=== PATIENT | female | born 1930 | race Caucasian/White ===

== ENCOUNTER 2017-01-06 07:43 | Inpatient (IN) | payer OTHER ==
--- NOTE | ~2017-01-06 | CR107 ---
[facility] A Service of [facility] RADIOLOGY TEXT RESULTS PATIENT: MIKE MAGANA LOCATION: [place] [address] : 30 UNIT #: [id number] AGE: [address]: Anthony Rodgers MD SEX: F ORDER DR: [id number] [facility] [address] [place], [place] [address] [id number] I MR#: [id number] Acc #: [id number] NAME: MIKE MAGANA. : 1930 SEX: F STUDY DATE/TIME: 01/06/2017 9:02 UNIT: CEDOF ROOM: 23493 STUDY DESCRIPTION: CR Femur 2 Views Rt Attending Physician: Anthony Rodgers M.D. Ordering Physician: Helio Hooker M.D. Primary Care Physician: Clara Olivares M.D. MEDICAL IMAGING REPORT This report is preliminary unless electronic signature is present EXAM Right femur, 01/06. INDICATIONS Leg pain after fall out of bed today. FINDINGS Four views were obtained including the proximal lower leg. Patient is status post previous fixation of the right proximal femur with an intramedullary renata and a compression screw. Again seen are the fractures of the proximal tibia and fibula. No definite fracture is seen within the femur. However, the distal femoral metaphysis is not well evaluated on the views provided. IMPRESSION Prior fixation of the proximal femur with a compression screw and intramedullary rneata. No acute femur fracture is seen on the views provided but the distal femoral metaphysis is fairly poorly evaluated on these images. If there is concern for distal femur fracture, additional imaging should be obtained. Redemonstrated are the known fracture of the proximal tibia and fibula. Dictated by... Mariano Gomez Jr., M.D. THIS IS AN ELECTRONICALLY VERIFIED REPORT Mariano Gomez Jr., M.D. at 01/06/2017 5:27 PM Ron TD: 01/06/2017 15:36 JOB #: [id number] [facility] A Service of [facility] RADIOLOGY TEXT RESULTS PATIENT: MIKE MAGANA LOCATION: [place] [address] : 30 UNIT #: [id number] AGE: [address]: Anthony Rodgers MD SEX: F ORDER DR: MEDICAL IMAGING REPORT Page 1 of 1 COPY
--- NOTE | ~2017-01-06 | CO ---
Unit #: [id number] #: [id number] Patient: MIKE MAGANA [id number] [address] [address] [id number] I MR#: [id number] NAME: MIKE MAGANA. ROOM: 447 Age: 86 Sex: F Admission Date: 01/06/2017 : 1930 Attending Physician: Anthony Rodgers M.D. Primary Care Physician: Clara Olivares M.D. Consultation Date: 01/07/2017 CONSULTATION REPORT REASON FOR CONSULTATION Elevated creatinine level. HISTORY OF PRESENT ILLNESS Patient is an 86-year-old white female with known history of hypertension, COPD, history of hypothyroidism, history of breast cancer status post right mastectomy, came in after a fall with noted right tibia and fibula fracture. Creatinine level noted to be 2.2. The creatinine was 0.5 in 2010. Baseline creatinine not currently available. Patient sees Dr. Olivares in the office. Patient does not report any chest pain or passing out. No fevers. No chills. No vomiting. No diarrhea. No use of NSAIDs. The home medications include Losartan and hydrochlorothiazide. PAST MEDICAL HISTORY 1. Hypertension. 2. COPD. 3. Graves disease. 4. Hypothyroidism. 5. Breast cancer. 6. History of compression fracture of T12. PAST SURGICAL HISTORY 1. Right mastectomy. 2. Cholecystectomy. 3. Appendectomy. SOCIAL HISTORY Does not drink, does not smoke. FAMILY HISTORY Unremarkable. ALLERGIES Sulfa. HOME MEDICATIONS 1. Losartan and hydrochlorothiazide. 2. Synthroid. 3. Remeron. REVIEW OF SYSTEMS CARDIOVASCULAR: No chest pain. RESPIRATORY: No cough or expectoration. GASTROINTESTINAL: No diarrhea. No vomiting. Unit #: [id number] #: [id number] Patient: MIKE MAGANA GENITOURINARY: No hematuria. No dysuria. PHYSICAL EXAMINATION GENERAL: Patient is awake, alert. VITAL SIGNS: Temperature is 98.9, heart rate is 70 per minute, blood pressure 142/34, saturation 98%. HEENT: Head is atraumatic. Extraocular movements are intact. Sclerae are anicteric. Nose: No discharge. Ears: No discharge. NECK: Supple. There is elevation of the JVD. CHEST: Clear. Air entry is equal. CARDIOVASCULAR: S1, S2 audible. There is no S3, no S4. ABDOMEN: Soft. There is no organomegaly. No guarding. No rigidity. No rebound tenderness. There is right splint for the fracture. CENTRAL NERVOUS SYSTEM: Motor system intact. Cerebellar system intact. DIAGNOSTIC STUDIES LABORATORY: WBC 8.8, H and H is 30.6 with a hemoglobin of 10, platelets is 94,000. Sodium 138, potassium 3.6, chloride 110, CO2 of 22, BUN 49, creatinine 2.1, glucose 148, calcium 8.1. Urinalysis is bland with 2+ blood and 10-25 WBC and RBC. The renal ultrasound reveals right kidney 8.8 cm with left kidney 9 cm with cortical thinning on the right side. IMPRESSION 1. Acute kidney injury, possible hemodynamic related increase in creatinine complicated by Losartan, possible progression of her underlying chronic kidney disease secondary to hypertensive nephrosclerosis. Will request the BMP and creatinine level from the previous one here from PCP office. The renal ultrasound does not reveal any obstruction. We will recheck the urinalysis and consider workup if there is significant proteinuria and active urinary sediment. Also, consider paraproteinemia. Currently, the renal function is stable. I do not expect the patient to need dialysis during the admission. Volume is mildly contracted clinically. Will gently hydrate the patient. Request to refrain from NSAIDs and (1) . 2. 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 3. Thrombocytopenia: Etiology unclear. 4. Status post right tibia/fibula fracture. 5. Hypertension. 6. Chronic obstructive pulmonary disease. Dictated by... Denys Ledbetter M.D. RA/mayda TD: 01/08/2017 16:08 JOB #: [id number] Unit #: [id number] #: [id number] Patient: MIKE MAGANA CONSULTATION REPORT Page 1 of 1 X Denys Ledbetter MD CONSULTATION REPORT
--- NOTE | ~2017-01-06 | DS ---
Unit #: [id number] #: [id number] Patient: MIKE MAGANA [id number] [address] [address] [id number] I MR#: [id number] NAME: MIKE MAGANA. ROOM: 462 Age: 86 Sex: F Admission Date: 01/06/2017 : 1930 Discharge Date: 01/12/2017 Attending Physician: Anthony Rodgers M.D. Primary Care Physician: Clara Olivares M.D. DISCHARGE SUMMARY DISCHARGE DIAGNOSES 1. Right tibia/fibula fracture, status post orthopedic evaluation, status post OR. 2. Acute kidney injury, is getting better. Status post evaluation per Nephrology stable to be discharged. 3. Hypertension, stable. 4. Chronic obstructive pulmonary disease at baseline. 5. Dementia, continue home medication. DISPOSITION Going to [facility]. FOLLOWUP 1. Follow up with Dr. Jose Olivares at the [facility]. 2. Outpatient followup with Dr. Denys Ledbetter, nephrology, in a week. 3. Outpatient followup with the orthopedic surgery. CONSULTANTS DONE THIS HOSPITAL STAY 1. Dr. Mckeon, orthopedic surgery. 2. Dr. Denys Ledbetter, nephrology. 3. Dr. Jackson, GI. LABS AND DIAGNOSTICS AND PROCEDURES [facility] 1. Colonoscopy with polypectomy per Dr. Jackson. 2. Closed reduction with a long leg cast per orthopedic surgery. 3. Urine culture negative. HISTORY OF PRESENT HOSPITAL STAY Please refer to H and P done by me for initial presentation on this female. ACTIVE PROBLEMS AND DIAGNOSES Right tib/fib fracture: Initially was entertaining thought of ORIF however after orthopedic surgery evaluation decided to do a conservative management with the long leg cast. Continue PT and OT. Outpatient followup with the orthopedic surgery. Continue symptomatic management. Acute kidney injury, discharge day BUN and creatinine 32 and 1.1: Discharge on p.o. Bumex. Per nephrology outpatient followup with nephrology. Hypertension, stable. Unit #: [id number] #: [id number] Patient: MIKE MAGANA COPD with baseline Dementia, on home meds. DISCHARGE MEDICATIONS 1. Heparin 5000 units subcu b.i.d. for DVT prophylaxis. 2. Remeron 15 mg daily. 3. Claritin 10 mg daily. 4. Amlodipine 10 mg daily. 5. Namzaric 28/10 one capsule q.h.s. 6. Bumex 2 mg p.o. b.i.d. for four more days. 7. Pepcid 20 mg daily. 8. Percocet 5/325 one tablet q.6 h. p.r.n. 9. Levothyroxine 100 mcg daily. DISPOSITION As above. DISCHARGE MEDICATIONS As above. Dictated by... Anthony Rodgers M.D. OC/jeffrey TD: 01/12/2017 19:02 JOB #: [id number] DISCHARGE SUMMARY Page 1 of 1 X Anthony Rodgers MD X DISCHARGE SUMMARY
--- NOTE | ~2017-01-06 | CR253 ---
[facility] A Service of [facility] & [facility] RADIOLOGY TEXT RESULTS PATIENT: MIKE MAGANA LOCATION: [place] [address] : 30 UNIT #: [id number] AGE: [address]: Anthony Rodgers MD SEX: F ORDER DR: [id number] [place] [address] [facility] [place], [place] [address] [id number] I MR#: [id number] Acc #: [id number] NAME: MIKE MAGANA. : 1930 SEX: F STUDY DATE/TIME: 01/06/2017 9:00 UNIT: CEDOF ROOM: 399[address] STUDY DESCRIPTION: CR Tibia and Fibula 2 Views Rt Attending Physician: Anthony Rodgers M.D. Ordering Physician: Helio Hooker M.D. Primary Care Physician: Clara Olivares M.D. MEDICAL IMAGING REPORT This report is preliminary unless electronic signature is present EXAM Right tib-fib; 01/06/2017. INDICATIONS Pain and swelling in the right tibia and fibula after a fall out of bed today. FINDINGS AP and lateral views of the right lower leg were obtained. Metallic splint is present. There are predominately transversely oriented fractures across the proximal fibula, as well as the proximal tibial diaphysis. These are slightly displaced in the lateral direction. No other definite fractures are seen. The patient is osteopenic. IMPRESSION Prominently transversely oriented fractures across the proximal fibula and the proximal tibia at the diaphysis level. These are mildly displaced in the lateral direction. Dictated by... Mariano Gomez Jr., M.D. THIS IS AN ELECTRONICALLY VERIFIED REPORT Mariano Gomez Jr., M.D. at 01/06/2017 5:27 PM SAMANTHA/donavan TD: 01/06/2017 15:34 JOB #: [id number] MEDICAL IMAGING REPORT Page 1 of 1 COPY
--- NOTE | ~2017-01-06 | HP ---
Unit #: [id number] #: [id number] Patient: MIKE MAGANA [id number] [address] [address] [id number] I MR#: [id number] NAME: MIKE MAGANA. ROOM: [facility] Age: 86 Sex: F Admission Date: 01/06/2017 : 1930 Attending Physician: Anthony Rodgers M.D. Primary Care Physician: Clara Olivares M.D. HISTORY AND PHYSICAL REASON FOR ADMISSION 1. Status post fall with right tib-fib fracture. 2. History of dementia. 3. History of hypertension. 4. History of chronic obstructive pulmonary disease. 5. History of Grave disease. Status post radioactive treatment, now with hypothyroidism. 6. History of breast cancer, status post right-sided mastectomy. 7. History of T12 compression fracture. 8. History of osteoporosis. HISTORY OF PRESENT ILLNESS Ms. 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 The patient's daughter is working at Dr. Olivares's office. She is a nurse practitioner. Apparently the patient was at home with her son when she sustained a fall. Upon evaluation In the emergency room she was found with the right tib-fib fracture. The patient did not have any head injury. There was no report of syncope, chest pain, dizziness, headache, fever, chills, nausea, vomiting, diarrhea, or abdominal pain. The patient herself has dementia with limited ability to carry on a conversation. However, at the bedside the patient's son and the daughter are both present. All of the history is basically obtained through them. PAST MEDICAL HISTORY 1. History of hypertension. 2. Chronic obstructive pulmonary disease. 3. Grave disease. 4. Hypothyroidism. 5. Breast cancer. 6. T12 compression fracture and osteoporosis. PAST SURGICAL HISTORY 1. Mastectomy. 2. Cholecystectomy. 3. Appendectomy. SOCIAL HISTORY No current history of tobacco, alcohol or illicit drugs. FAMILY HISTORY Unremarkable. ALLERGIES Unit #: [id number] #: [id number] Patient: MIKE MAGANA Sulfa. HOME MEDICATIONS 1. Loratadine. 2. Losartan/HCTZ. 3. Synthroid. 4. Remeron. 5. Namzaric 28/10. REVIEW OF SYSTEMS As above in history of present illness. PHYSICAL EXAMINATION GENERAL: The patient is an 86-year-old female in no acute distress. HEENT: Head is atraumatic. Pupils equal, round and reactive to light. Oropharynx clear. NECK: Supple. No masses. No jugular venous distension. No bruits. CHEST: Diminished at the bases. Otherwise clear. HEART: S1 and S2. No murmurs. ABDOMEN: Soft, nontender and nondistended. Bowel sounds present. EXTREMITIES: Lower extremities without any cyanosis, clubbing or edema. She has an Alejandro wrap with a cast on the right. NEUROLOGIC: She is without any focal deficits. She is alert and awake with limited conversational ability, but again she moves all four extremities. No focal deficits. No facial asymmetry. DIAGNOSTIC STUDIES IMAGING: X-ray shows prominently transversely oriented fractures across the proximal fibula and the proximal tibia at the diaphysis level. These are mildly displaced in the lateral direction. Femur x-ray shows prior fixation of the proximal femur with a compression screw and intramedullary renata. LABORATORY: Chemistry is significant for BUN 55, creatinine 2.2. Blood glucose 134. Hematology, white blood cell count 8.9, hemoglobin 12.1, hematocrit 37, platelets 121. ASSESSMENT 1. Status post fall with right tib-fib fracture. Continue supportive care, symptomatic management with some Dilaudid and IV fluids. Start on heparin for DVT prophylaxis. Status post orthopedic evaluation, to take patient to the operating room. 2. Acute renal failure on questionable chronic kidney disease. Will hold ARBs and HCTZ. Gentle hydration. Follow up on the chemistry. Will have nephrology to follow. 3. History of dementia. Continue home medications. 4. Hypertension. Stable with blood pressure 109/59, heart rate 69. 5. History of chronic obstructive pulmonary disease. Stable at baseline. 6. History of osteoporosis. 7. History of Grave disease. 8. History of breast cancer, status post mastectomy. 9. GI and DVT prophylaxis. Will put her on Pepcid. Continue heparin. Discontinue Protonix. Unit #: [id number] #: [id number] Patient: MIKE MAGANA Dictated by Anthony Rodgers M.D. OC/gz TD: 01/07/2017 07:01 JOB #: [id number] HISTORY AND PHYSICAL Page 1 of 1 X Anthony Rodgers MD HISTORY AND PHYSICAL
--- NOTE | ~2017-01-06 | US77 ---
[facility] A Service of [facility] & [facility] RADIOLOGY TEXT RESULTS PATIENT: MIKE MAGANA LOCATION: [place] 447-01 : 30 UNIT #: [id number] AGE: [address]: Anthony Rodgers MD SEX: F ORDER DR: [id number] [facility] [address] [place], [place] [address] [id number] I MR#: [id number] Acc #: [id number] NAME: MIKE MAGANA. : 1930 SEX: F STUDY DATE/TIME: 01/06/2017 21:36 UNIT: C4B ROOM: [facility] STUDY DESCRIPTION: US Kidney Bilateral Complete Attending Physician: Anthony Rodgers M.D. Ordering Physician: Chetan Alejandro Primary Care Physician: Clara Olivares M.D. MEDICAL IMAGING REPORT This report is preliminary unless electronic signature is present EXAM Complete bilateral renal ultrasound. COMPARISON None. INDICATIONS 86-year-old female with acute renal insufficiency. FINDINGS Right kidney measures 8.8 cm in length with mild diffuse cortical thinning. There is a hypoechoic structure in the superior pole of the right kidney favoring a cyst. It measures up to 3.1 cm x 2.5 cm x 1.9 cm and does not have internal color flow. There is no right hydronephrosis. No shadowing right renal calculi. Left kidney measures 9 cm in length. Detail of the left kidney is limited by poor acoustic window. Left renal cortical thickness appears normal. Bladder is not well seen on this exam. IMPRESSION 1. Asymmetric diffuse cortical atrophy of the right kidney with normal left-sided cortical thickness. 2. No hydronephrosis. 3. Hypoechoic structure favoring a cyst in the superior pole of the right kidney measuring up to approximately 3.1 cm. Consider imaging followup in 1 year to document stability. 4. Urinary bladder is not seen on this exam. Dictated by... Jelani Snell M.D. THIS IS AN ELECTRONICALLY VERIFIED REPORT Jelani Snell M.D. at 01/08/2017 10:23 PM [address] [facility] A Service of [facility] & [facility] RADIOLOGY TEXT RESULTS PATIENT: MIKE MAGANA LOCATION: [facility] [id number] : 30 UNIT #: [id number] AGE: [address]: Anthony Rodgers MD SEX: F ORDER DR: Rony TD: 01/07/2017 12:32 JOB #: [id number] MEDICAL IMAGING REPORT Page 1 of 1 COPY
--- NOTE | ~2017-01-06 | CR170 ---
[facility] A Service of [facility] & [facility] RADIOLOGY TEXT RESULTS PATIENT: MIKE MAGANA LOCATION: [place] [address] : 30 UNIT #: [id number] AGE: [address]: Anthony Rodgers MD SEX: F ORDER DR: [id number] [facility] [address] [place], [place] [address] [id number] I MR#: [id number] Acc #: [id number] NAME: MIKE MAGANA. : 1930 SEX: F STUDY DATE/TIME: 01/06/2017 20:30 UNIT: [facility] ROOM: [facility] STUDY DESCRIPTION: CR Knee 2 Views Rt Attending Physician: Anthony Rodgers M.D. Ordering Physician: Rodrigo Barros M.D. Primary Care Physician: Clara Olivares M.D. MEDICAL IMAGING REPORT This report is preliminary unless electronic signature is present EXAM Right knee 2 views INDICATIONS Fall and right knee pain. COMPARISON No comparisons. FINDINGS Osteopenia. There are fractures of both the proximal tibia and fibula. The tibial fracture is impacted and comminuted, and the fibular fracture is also impacted. The knee joint does appear to be intact. IMPRESSION Impacted fractures of the proximal tibial metaphysis and also the proximal fibula. Dictated by... Bernrad Chaudhry M.D. THIS IS AN ELECTRONICALLY VERIFIED REPORT Bernard Chaudhry M.D. at 01/11/2017 1:32 PM GAYATRI/luciano TD: 01/07/2017 11:43 JOB #: [id number] MEDICAL IMAGING REPORT Page 1 of 1 COPY
--- NOTE | ~2017-01-06 | CO ---
Unit #: [id number] #: [id number] Patient: MIKE PICHARDO [id number] [address] [address] [id number] I MR#: [id number] NAME: MIKE PICHARDO. ROOM: [facility] Age: 86 Sex: F Admission Date: 01/06/2017 : 1930 Attending Physician: Anthony Rodgers M.D. Primary Care Physician: Clara Olivares M.D. Consultation Date: 01/06/2017 CONSULTATION REPORT HISTORY OF PRESENT ILLNESS Ms. Pichardo is an 86-year-old lady who lives at home with her son. She does suffer from some memory loss. I have asked her today how she injured her right leg, and she does not remember. Reviewing the chart, it states that she did have a fall injuring her right leg. She was brought to the emergency room and was found to have a tib/fib fracture on the right side. We have been asked to provide orthopedic care for this closed injury. PAST SURGICAL HISTORY Reveals that surgically she has had a right hip gamma in the past by Dr. Barros, hysterectomy, gallbladder, right breast mastectomy, thyroid procedures. PAST MEDICAL HISTORY 1. Breast cancer. 2. Reflux. 3. Dementia. 4. Osteoporosis. 5. COPD. MEDICATIONS 1. Allerclear. 2. Losartan/hydrochlorothiazide. 3. Synthroid. 4. Remeron. 5. Namzaric. ALLERGIES Sulfa. SOCIAL HISTORY She lives with her son at home. She denies the use of tobacco or alcohol. REVIEW OF SYSTEMS Because of her dementia, I was unable to obtain a review of systems. PHYSICAL EXAMINATION GENERAL: The patient's exam today reveals she is awake but not alert. She is afebrile. Her pulse is 69. Her blood pressure is 109/59. The patient appears comfortably, resting in bed with her leg elevated. She has a splint in place. EXTREMITIES: Her orthopedic exam reveals her upper extremities move well. Lower extremities: Left leg moves well. Right leg is in a splint. Her neurovascular exam is intact in the foot. Unit #: [id number] #: [id number] Patient: MIKE PICHARDO PLAN I have reviewed her x-rays and it shows that she has a proximal tib/fib fracture that is angulated on the AP view but in good alignment on the lateral. I will discuss this with Dr. Barros, but we will either treat her with a closed reduction and long-leg cast or possibly ORIF. Dr. Barros will be doing her surgery tomorrow. Dictated by... Sarah Osei/mayda TD: 01/08/2017 09:52 JOB #: [id number] CONSULTATION REPORT Page 1 of 1 X Reese Mckeon MD X CONSULTATION REPORT
[~2017-01-06 07:43] MED LIST: ALLEGRA180 MG PO; ANUSOL-HC SUPP25 M1 PR; ASPIRIN81 M1 PO; HYDROCODONE-APA1 T56 PO; LEVOTHYROXINE100 MCG PO; LOSARTAN-HCTZ1 EAC2 PO; MEVACOR40 MG PO; MOBIC15 MG PO; SINGULAIR PO; TRAMADOL HCL50 M1 PO
[2017-01-06 09:27] LABS: BASOPHIL# 0.1 X10e3 (0-0.3); BASOPHIL% 0.8 % (0-2.5); EOSINOPHIL# 0.2 X10e3 (0-0.7); EOSINOPHIL% 2.7 % (0.0-7.0); HEMOGLOBIN 12.1 gm/dL (12.0-16.0); LYMPHOCYTE# 1.5 X10e3 (1.0-3.5); LYMPHOCYTE% 17.3 % (17.0-45.0); MEAN CELL VOLUME 98.5 FL (83-96); MEAN CORPUSCULAR HEMOGLOBIN 32.1 PG (28-34); MEAN CORPUSCULAR HGB CONC 32.6 g/dL (30-36); MEAN PLATELET VOLUME 9.3 FL (6.5-11.5); MONOCYTE# 0.6 X10e3 (0-1.0); MONOCYTE% 6.6 % (3.0-12.0); NEUTROPHIL# 6.4 X10e3 (1.5-7.1); NEUTROPHIL% 72.6 % (40-75); PLATELET COUNT 121 X10e3 (140-420); RED BLOOD COUNT 3.75 X10e (3.90-5.30); RED CELL DISTRIBUTION WIDTH 14.9 % (11.0-15.5); WHITE BLOOD COUNT 8.9 X10e3 (4.0-10.5)
[2017-01-06 09:28] LABS: DIFF IND NO
[2017-01-06 09:56] LABS: CALCIUM SERUM 9.3 mg/dL (8.4-10.2); CREATININE SERUM 2.2 mg/dL (0.6-1.4); GLOM FILT RATE Estimated 19.7 mL/min (>60); POTASSIUM 3.6 mmol/L (3.5-5.1)
[2017-01-06] MEDS ORDERED: PATIENT'S PHARMACY (11:48)
[2017-01-06] MEDS ORDERED: SYNTHROID PO (11:49)
[2017-01-06] MEDS ORDERED: ALLERCLEAR10 MG PO (11:49)
[2017-01-06] MEDS ORDERED: REMERON PO (11:49)
[2017-01-06] MEDS ORDERED: LOSARTAN-HCTZ1 EAC2 PO (11:49)
[2017-01-06] MEDS ORDERED: NAMZARIC 28 MG1 EACH PO (11:50)
[2017-01-06 21:16] LABS: URINE APPEARANCE CLEAR; URINE BILIRUBIN NEG (NEG); URINE BLOOD 2+ (NEG); URINE COLOR YELLOW; URINE GLUCOSE NEG (NEG); URINE KETONE NEG (NEG); URINE LEUKOCYTE ESTERASE 1+ (NEG); URINE NITRATE NEG (NEG); URINE PROTEIN NEG (NEG); URINE SPECIFIC GRAVITY 1.018 (1.003-1.035)
[2017-01-06 21:18] LABS: CULTURE INDICATED? YES; URINE BACTERIA AUWI 1+ (NEGATIVE); URINE SQUAMOUS EPITHELIAL CELL OCC /[HPF]
[2017-01-07 04:22] LABS: BASOPHIL% 0.4 % (0-2.5); EOSINOPHIL% 0.2 % (0.0-7.0); HEMATOCRIT 30.6 % (35.0-45.0); LYMPHOCYTE# 1.2 X10e3 (1.0-3.5); LYMPHOCYTE% 14.1 % (17.0-45.0); MEAN CELL VOLUME 98.6 FL (83-96); MEAN CORPUSCULAR HEMOGLOBIN 32.3 PG (28-34); MEAN CORPUSCULAR HGB CONC 32.7 g/dL (30-36); MEAN PLATELET VOLUME 9.8 FL (6.5-11.5); MONOCYTE# 0.9 X10e3 (0-1.0); MONOCYTE% 10.7 % (3.0-12.0); NEUTROPHIL# 6.5 X10e3 (1.5-7.1); NEUTROPHIL% 74.6 % (40-75); RED CELL DISTRIBUTION WIDTH 14.9 % (11.0-15.5); WHITE BLOOD COUNT 8.8 X10e3 (4.0-10.5)
[2017-01-07 04:24] LABS: BUN/CREATININE RATIO 23.33; CALCIUM SERUM 8.1 mg/dL (8.4-10.2); CREATININE SERUM 2.1 mg/dL (0.6-1.4); GLOM FILT RATE Estimated 20.8 mL/min (>60); POTASSIUM 3.6 mmol/L (3.5-5.1)
[2017-01-07 04:48] LABS: DIFF IND YES; PLATELET COUNT 94 X10e3 (140-420)
[2017-01-07 05:00] LABS: ANISOCYTOSIS SL; PLATELET ESTIMATE DECREASED (NORMAL)
[2017-01-07 18:45] LABS: URINE APPEARANCE CLOUDY; URINE BILIRUBIN NEG (NEG); URINE BLOOD 2+ (NEG); URINE COLOR YELLOW; URINE GLUCOSE NEG (NEG); URINE KETONE NEG (NEG); URINE LEUKOCYTE ESTERASE 3+ (NEG); URINE NITRATE NEG (NEG); URINE PROTEIN TRACE (NEG); URINE SPECIFIC GRAVITY 1.018 (1.003-1.035)
[2017-01-07 18:48] LABS: CULTURE INDICATED? YES; URINE BACTERIA AUWI 1+ (NEGATIVE); URINE SQUAMOUS EPITHELIAL CELL OCC /[HPF]; UWBCS1 AUWI 200-300 (0-5)
[2017-01-07 19:40] LABS: CREATININE,RANDOM URINE 112 mg/dL; SODIUM URINE RANDOM 48 mmol/L; TOTAL PROTEIN,RANDOM URINE 18 mg/dl (<10)
[2017-01-08 04:00] LABS: BASOPHIL% 0.3 % (0-2.5); EOSINOPHIL# 0.1 X10e3 (0-0.7); EOSINOPHIL% 0.6 % (0.0-7.0); HEMATOCRIT 30.6 % (35.0-45.0); LYMPHOCYTE# 1.4 X10e3 (1.0-3.5); LYMPHOCYTE% 12.2 % (17.0-45.0); MEAN CELL VOLUME 98.5 FL (83-96); MEAN CORPUSCULAR HGB CONC 32.5 g/dL (30-36); MEAN PLATELET VOLUME 9.6 FL (6.5-11.5); MONOCYTE# 1.3 X10e3 (0-1.0); MONOCYTE% 11.8 % (3.0-12.0); NEUTROPHIL# 8.4 X10e3 (1.5-7.1); NEUTROPHIL% 75.1 % (40-75); PLATELET COUNT 88 X10e3 (140-420); RED BLOOD COUNT 3.11 X10e (3.90-5.30); RED CELL DISTRIBUTION WIDTH 15.1 % (11.0-15.5); WHITE BLOOD COUNT 11.2 X10e3 (4.0-10.5)
[2017-01-08 04:02] LABS: DIFF IND NO
[2017-01-08 04:19] LABS: BUN/CREATININE RATIO 21.25; CALCIUM SERUM 8.5 mg/dL (8.4-10.2); CREATININE SERUM 1.6 mg/dL (0.6-1.4); GLOM FILT RATE Estimated 28.9 mL/min (>60); POTASSIUM 3.7 mmol/L (3.5-5.1)
[2017-01-09 03:34] LABS: BUN/CREATININE RATIO 20.71; CALCIUM SERUM 8.5 mg/dL (8.4-10.2); CREATININE SERUM 1.4 mg/dL (0.6-1.4); GLOM FILT RATE Estimated 33.9 mL/min (>60); POTASSIUM 4.4 mmol/L (3.5-5.1)
[2017-01-10 03:05] LABS: HEMATOCRIT 28.2 % (35.0-45.0); HEMOGLOBIN 9.1 gm/dL (12.0-16.0); MEAN CELL VOLUME 99.7 FL (83-96); MEAN CORPUSCULAR HEMOGLOBIN 32.1 PG (28-34); MEAN CORPUSCULAR HGB CONC 32.2 g/dL (30-36); MEAN PLATELET VOLUME 9.5 FL (6.5-11.5); RED BLOOD COUNT 2.83 X10e (3.90-5.30); RED CELL DISTRIBUTION WIDTH 15.3 % (11.0-15.5); WHITE BLOOD COUNT 7.6 X10e3 (4.0-10.5)
[2017-01-10 03:24] LABS: BUN/CREATININE RATIO 25.83; CALCIUM SERUM 8.3 mg/dL (8.4-10.2); CREATININE SERUM 1.2 mg/dL (0.6-1.4); GLOM FILT RATE Estimated 40.9 mL/min (>60); POTASSIUM 4.7 mmol/L (3.5-5.1)
[2017-01-11 03:29] LABS: BUN/CREATININE RATIO 23.84; CALCIUM SERUM 8.6 mg/dL (8.4-10.2); CREATININE SERUM 1.3 mg/dL (0.6-1.4); GLOM FILT RATE Estimated 37.1 mL/min (>60); POTASSIUM 4.3 mmol/L (3.5-5.1)
[2017-01-12 02:45] LABS: BASOPHIL% 0.6 % (0-2.5); EOSINOPHIL# 0.3 X10e3 (0-0.7); EOSINOPHIL% 4.5 % (0.0-7.0); HEMATOCRIT 28.7 % (35.0-45.0); HEMOGLOBIN 9.3 gm/dL (12.0-16.0); LYMPHOCYTE# 1.2 X10e3 (1.0-3.5); LYMPHOCYTE% 18.2 % (17.0-45.0); MEAN CELL VOLUME 99.6 FL (83-96); MEAN CORPUSCULAR HEMOGLOBIN 32.4 PG (28-34); MEAN CORPUSCULAR HGB CONC 32.6 g/dL (30-36); MEAN PLATELET VOLUME 8.9 FL (6.5-11.5); MONOCYTE# 0.8 X10e3 (0-1.0); MONOCYTE% 12.1 % (3.0-12.0); NEUTROPHIL# 4.3 X10e3 (1.5-7.1); NEUTROPHIL% 64.6 % (40-75); PLATELET COUNT 88 X10e3 (140-420); RED BLOOD COUNT 2.88 X10e (3.90-5.30); RED CELL DISTRIBUTION WIDTH 15.4 % (11.0-15.5); WHITE BLOOD COUNT 6.6 X10e3 (4.0-10.5)
[2017-01-12 02:46] LABS: DIFF IND NO
[2017-01-12 03:11] LABS: BUN/CREATININE RATIO 29.09; CALCIUM SERUM 8.7 mg/dL (8.4-10.2); CREATININE SERUM 1.1 mg/dL (0.6-1.4); GLOM FILT RATE Estimated 45.4 mL/min (>60); POTASSIUM 4.4 mmol/L (3.5-5.1)
== END 2017-01-13 00:25 | DRG 563 ==
LOC: CED 07:43 → CEDOF 11:38 → C4B 11:38 → CEDOF 11:56 → CED 11:56 → C4B 17:15 → C4C 01-10 16:06
PROVIDERS: Emergency Medicine; Hospitalist; Internal Medicine Nephrology; Physician Assistant Medical; Psychiatry & Neurology Neurology
PROC: 2W3QX1Z Immobilization of Right Lower Leg using Splint (ICD-10-PCS; principal; 2017-01-07)
DX: S82.101A Unspecified fracture of upper end of right tibia, initial encounter for closed fracture (principal); N17.9 Acute kidney failure, unspecified; I95.9 Hypotension, unspecified; E87.2 Acidosis; J44.9 Chronic obstructive pulmonary disease, unspecified; D69.6 Thrombocytopenia, unspecified; N18.3 Chronic kidney disease, stage 3 (moderate); F03.90 Unspecified dementia, unspecified severity, without behavioral disturbance, psychotic disturbance, mood disturbance, and anxiety; S82.401A Unspecified fracture of shaft of right fibula, initial encounter for closed fracture; W06.XXXA Fall from bed, initial encounter; Y92.009 Unspecified place in unspecified non-institutional (private) residence as the place of occurrence of the external cause; I12.9 Hypertensive chronic kidney disease with stage 1 through stage 4 chronic kidney disease, or unspecified chronic kidney disease; E03.9 Hypothyroidism, unspecified; M81.0 Age-related osteoporosis without current pathological fracture; D64.9 Anemia, unspecified; Z88.2 Allergy status to sulfonamides; Z90.49 Acquired absence of other specified parts of digestive tract; Z85.3 Personal history of malignant neoplasm of breast; Z90.11 Acquired absence of right breast and nipple
CPT/HCPCS: 36415; 73552; 73560; 73590; 76770; 80048; 81003; 82550; 82570; 84156; 84300; 85025; 85027; 87086; 96361; 96374; 97110; 97116; 97162; 97530; 97535; 99285; G8978-GP; G8979-GP; J0696; J1170; J1644; J1956

== ENCOUNTER 2017-01-24 11:25 | Inpatient (IN) | payer OTHER ==
[~2017-01-24] VITALS: Ht 157.5 cm; Wt 65.0 kg
--- NOTE | ~2017-01-24 | CO ---
Unit #: [id number] #: [id number] Patient: MIKE MAGANA [id number] [address] [address] [id number] I MR#: [id number] NAME: MIKE MAGANA ROOM: [facility] Age: 86 Sex: F Admission Date: 01/24/2017 : 1930 Attending Physician: Anthony Rodgers M.D. Primary Care Physician: Clara Olivares M.D. CONSULTATION REPORT RENAL CONSULTATION REASON FOR CONSULTATION Decreased urine output. HISTORY OF PRESENT ILLNESS The patient is an 86-year-old female with significant past medical history of dementia, Graves' disease, hypothyroidism, hypertension, mainly admitted to the hospital because of the tibial and fibular fracture on the right side but also patient is having some abdominal distention and diarrhea at home. The patient's diarrhea continued yesterday and also was found to have C. diff colitis. The patient's baseline creatinine is 1.2 but creatinine is stable. Urine output dropped overnight with just 150 mL urine output overnight but it improved in the last eight hours around 500 mL. No other complaint at this time. The patient already had reduction done for tibial and fibular fracture. PAST MEDICAL HISTORY 1. COPD. 2. Hypertension. 3. Dementia. 4. Hypothyroidism. PAST SURGICAL HISTORY Significant for: 1. Mastectomy. 2. Cholecystectomy. 3. Appendectomy. SOCIAL HISTORY No history of alcohol or drug abuse. FAMILY HISTORY Unremarkable. MEDICATIONS Home medications did include: 1. Angiotensin receptor lexie. 2. Thiazide diuretics. REVIEW OF SYSTEMS Already explained in history of present illness. PHYSICAL EXAMINATION Unit #: [id number] #: [id number] Patient: MIKE MAGANA GENERAL: The patient is an elderly female, not in any acute distress. Totally confused. VITAL SIGNS: Blood pressure 100/60, pulse is around 75, temperature 98. HEAD/NECK: Pupils reactive to light. Extraocular movements intact. NECK: Supple. CHEST: Bilateral air entry with some crackles. HEART: Regular rate and rhythm. No murmur, no gallop. ABDOMEN: Soft. Tenderness with guarding all over the abdomen. EXTREMITIES: 1+ edema with a case on the right lower extremity. NEUROLOGIC: The patient is alert but not oriented at all. DIAGNOSTIC STUDIES LABORATORY: Labs show patient's creatinine of 1 now, sodium is 128, potassium is 3.7, chloride 104, bicarb 4, calcium 8.2, phosphorus 2.3, albumin 2.6. ASSESSMENT AND PLAN 1. Acute kidney injury at risk with a creatinine of 1 which is stable, decreased urine output: Patient already received IV fluids. Will change IV fluids to normal saline. Some albumin will be given. The patient already received diuretics her today to improve urine output. 2. Hyponatremia, likely because of the hypo-osmolar fluid replacement: Will change IV fluids to normal saline but at this time patient's volume status is stable. No need for extra IV fluids. Depending upon patient's diarrhea and hemodynamics, extra fluid can be given. 3. Hypertension: Will hold angiotensin receptor lexie because of acute kidney injury. Will re-evaluate labs and urine studies. Thank you for letting me evaluate in taking care of this patient. Dictated by... Sarah Huggins TD: 01/31/2017 07:33 JOB #: [id number] CONSULTATION REPORT Page 1 of 1 X Fortunato Gutierrez MD X CONSULTATION REPORT
--- NOTE | ~2017-01-24 | CR72 ---
[facility] A Service of [facility] RADIOLOGY TEXT RESULTS PATIENT: MIKE MAGANA LOCATION: [place] [address]20 : 30 UNIT #: [id number] AGE: [address]: Anthony Rodgers MD SEX: F ORDER DR: [id number] [facility] [address] [facility]. [place], [place] [address] [id number] I MR#: [id number] #: [id number] NAME: MIKE MAGANA. : 1930 SEX: F STUDY DATE/TIME: 02/04/2017 5:10 UNIT: [facility] ROOM: [facility] STUDY DESCRIPTION: CR Chest Single View Portable Attending Physician: Anthony Rodgers M.D. Ordering Physician: Sissy Ledbetter M.D. Primary Care Physician: Clara Olivares M.D. MEDICAL IMAGING REPORT This report is preliminary unless electronic signature is present EXAMINATION AP portable chest. DATE 02/04/2017 HISTORY 86-year-old female with shortness of breath today. Symptoms began 01/24/2017. History of breast cancer. Recent right side thoracentesis, 02/01/2017. FINDINGS Dense consolidative changes are present in the bilateral lower lobes and the right perihilar region, with more ill-defined interstitial and alveolar disease changes scattered throughout both lungs. Small layering bilateral pleural effusions thought to be present. The right IJ central line remains in the cavoatrial junction. Stable mild cardiac enlargement. No visible pneumothorax. Surgical clips project over the right axilla. Vertebroplasty changes are seen in the lumbar spine. IMPRESSION #1. Extensive interstitial and alveolar disease changes greatest in the lung bases and right perihilar region, thought to represent changes of multifocal pneumonia. Layering bilateral pleural effusions, unchanged. #2. No visible pneumothorax. #3. No significant change from 02/03/2017. Dictated by... Jerri Seth M.D. [facility] A Service of [facility] RADIOLOGY TEXT RESULTS PATIENT: MIKE MAGANA LOCATION: [address]-20 : 30 UNIT #: [id number] AGE: [address]: Anthony Rodgers MD SEX: F ORDER DR: THIS IS AN ELECTRONICALLY VERIFIED REPORT Jerri Seth M.D. at 02/04/2017 9:41 PM Brigitte TD: 02/04/2017 20:31 JOB #: [id number] MEDICAL IMAGING REPORT Page 1 of 1 COPY
--- NOTE | ~2017-01-24 | FU ---
[facility] Nutrition Therapy DATE: 01/31/17 Patient: MIKE MAGANA Physician: OLGA Address: [address] [facility] Room/Bed: [address], Zip: [place] [id number] Admit Date: 01/24/17 Date of : 30 Height: 5 2 Weight: 156 71 NUTRITION MONITORING/FOLLOW-UP: Reason: Nutrition follow-up Admitting dx: 86 y/o female initially admitted with sepsis and AMS Anthropometrics: Ht: 62", admission wt: 61 kg, current wt: 71 kg, BMI: 23 (normal; based on admission weight) *Note edema may be contributing to weight gain Labs: Na 130, glucose 116, Phos 2.3 (01/27) Meds: Therapeutic formula, colace, synthroid GI: BM 01/30 Skin: stage II pressure ulcer L buttocks, 2-4+ edema noted Assessment: Chart reviewed, events noted. Patient is on 2L nasal cannula, had ORIF of R leg yesterday (01/30). She is tolerating a mechanical soft diet, however RN reports continued poor appetite, pt ate 1/2 of pudding this morning, RN has been trying to encourage intake and push Ensure (has Ensure clear pickens ordered QID). Will change supplements and add Ensure pudding. See nutrition dx and goals below, will continue to follow. Dx: 1) Increased nutrient needs r/t wound healing requirements AEB stage II non-healing pressure ulcer L buttock - ACTIVE New nutrition dx: 2) Inadequate oral intake r/t AMS, poor appetite AEB PO intake < 50% of meals, need for ONS, RN report. Intervention: Ensure clear BID, Ensure pudding BID Monitoring, Evaluation and Goals: 1. PO intake > 50% of meals - NOT MET 2. Maintain weight status - MET (note weight gain, likely due to 2-4+ edema) 3. Promote wound healing - IN PROGRESS (wound care prn, MVI added) Monitor: Per protocol, criteria to determine if above goals met Recommendations: 1. Continue mechanical soft diet per [employer]ST, appreciate staff/family to assist with meal [facility] Nutrition Therapy DATE: 01/31/17 Patient: MIKE MAGANA Physician: OLGA Address: [address] [facility]/Bed: [address], Zip: [place] [address] Admit Date: 01/24/17 Date of : 30 Height: 5 2 Weight: 156 71 set-up and feeding, encourage PO intake. 2. RD changing oral supplement regimen to mixed pickens Ensure clear BID + chocolate Ensure pudding BID. 3. If pt's poor oral intake continues suggest placing DHT and starting enteral nutrition to provide approx. 75% of estimated nutritional needs. If this is desired, please consult or call dietitian to obtain recommendations for formula and goal rate. 4. Fluids per MD noting hyponatremia. Check Phos lab (was low on 01/27). Replete lytes prn. Status: Mild-moderate nutrition risk Respectfully, Renae Vu, RD, LD [facility] cc: client file
--- NOTE | ~2017-01-24 | CR72 ---
[facility] A Service of [facility] RADIOLOGY TEXT RESULTS PATIENT: MIKE MAGANA LOCATION: [address]-20 : 30 UNIT #: [id number] AGE: [address]: Anthony Rodgers MD SEX: F ORDER DR: [id number] [facility] [address] [place], [place] [address] [id number] I MR#: [id number] Acc #: [id number] NAME: MIKE MAGANA : 1930 SEX: F STUDY DATE/TIME: 02/01/2017 11:08 UNIT: [facility] ROOM: [facility] STUDY DESCRIPTION: CR Chest Single View Portable Attending Physician: Anthony Rodgers M.D. Ordering Physician: Mariano Burgess M.D. Primary Care Physician: Clara Olivares M.D. MEDICAL IMAGING REPORT This report is preliminary unless electronic signature is present EXAM Chest portable, 02/01/2017 11:08 hours HISTORY 86-year-old with shortness of air status post right thoracentesis today. Pleural effusion for followup. COMPARISON 01/30/2017 FINDINGS Portable upright chest demonstrates right IJ catheter with tip at junction of SVC and right atrium. There is significant interval decrease in right pleural effusion with some residual blunting of the right costophrenic sulcus. There is persistent airspace change in the right lung. There is lucency projecting obliquely over the right apex. This is most likely a skin fold as lung markings are seen to the apex. The patient has new complete whiteout of the left hemithorax since the film of 01/30/2017. While this could be related to previously demonstrated left effusion increasing in size, I believe it is more likely related to mucous plugging of the left bronchus. Consider bronchoscopy. IMPRESSION 1. Post thoracentesis film demonstrates significant decrease in right pleural effusion with mild residual blunting of the right costophrenic sulcus. There is no definite pneumothorax. Lucency over the right apex is felt more likely to be a skin fold. The lung markings are seen to the apex. 2. There is new complete whiteout of the left hemithorax since the film of 01/30/2017. The patient does have a left pleural effusion and rapid increase in left pleural effusion could give this appearance however I favor this is more likely related to acute mucous plugging. [facility] A Service of [facility] RADIOLOGY TEXT RESULTS PATIENT: MIKE MAGANA LOCATION: [address]20 : 30 UNIT #: [id number] AGE: [address]: Anthony Rodgers MD SEX: F ORDER DR: STAT * RESULT Dictated by... Nicolasa Greene M.D. THIS IS AN ELECTRONICALLY VERIFIED REPORT Nicolasa Greene M.D. at 02/01/2017 2:32 PM Adele TD: 02/01/2017 11:49 JOB #: [id number] MEDICAL IMAGING REPORT Page 1 of 1 COPY
--- NOTE | ~2017-01-24 | CR167 ---
[facility] A Service of [facility] RADIOLOGY TEXT RESULTS PATIENT: MIKE MAGANA LOCATION: [address] : 30 UNIT #: [id number] AGE: [address]: Anthony Rodgers MD SEX: F ORDER DR: [id number] [facility] [address] [place], [place] [address] [id number] I MR#: [id number] Acc #: [id number] NAME: MIKE MAGANA : 1930 SEX: F STUDY DATE/TIME: 01/30/2017 UNIT: [facility] ROOM: [facility] STUDY DESCRIPTION: CR Knee 1 View Rt Attending Physician: Anthony Rodgers M.D. Ordering Physician: Reese Mckeon M.D. Primary Care Physician: Clara Olivares M.D. MEDICAL IMAGING REPORT This report is preliminary unless electronic signature is present EXAM Right knee 1 view 01/30/2017 at 12 o'clock hours HISTORY Closed reduction right proximal tibia/fibula fracture by Dr. Mckeon. Fluoroscopy time 10 seconds. COMPARISON 01/25/2017. FINDINGS Submitted for interpretation is 1 frontal view of the knee performed by Dr. Mckeon following 10 seconds of fluoroscopy time with a cast present. This demonstrates the transverse fractures of the proximal metaphysis of the tibia and fibula in near anatomic alignment. IMPRESSION Single intraoperative view in a cast demonstrates reduction of proximal tibia fibular fracture with near anatomic alignment on this single projection. Fluoroscopy time 10 seconds. Dictated by... Nicolasa Greene M.D. THIS IS AN ELECTRONICALLY VERIFIED REPORT Nicolasa Greene M.D. at 01/31/2017 9:23 AM SANDHYA/dali TD: 01/30/2017 23:04 JOB #: [id number] MEDICAL IMAGING REPORT [facility] A Service [facility] RADIOLOGY TEXT RESULTS PATIENT: MIKE MAGANA LOCATION: [address] : 30 UNIT #: [id number] AGE: [address]: Anthony Rodgers MD SEX: F ORDER DR: Page 1 of 1 COPY
--- NOTE | ~2017-01-24 | DS ---
Unit #: [id number] #: [id number] Patient: MIKE MAGANA [id number] [address] [address] [id number] I MR#: [id number] NAME: MIKE MAGANA. ROOM: 218 Age: 86 Sex: F Admission Date: 01/24/2017 : 1930 Discharge Date: 02/09/2017 Attending Physician: Anthony Rodgesr M.D. Primary Care Physician: Clara Olivares M.D. DISCHARGE SUMMARY SUMMARY DATE OF 02/09/2017. FINAL DIAGNOSES 1. Septic shock. 2. C diff colitis. 3. Acute kidney injury. 4. Right tibia fibula fracture. 5. Acute kidney injury. 6. Malnutrition. 7. Hypotension. 8. Transudative effusion. 9. History of right mastectomy. 10. Pseudomonas pneumonia. 11. Diastolic congestive heart failure. HOSPITAL COURSE The patient had extensive and lengthy stay during hospitalization. The patient's family was very much involved in the patient's care. The patient was made comfort care only on 02/08/2017. The patient on 02/09/2017. Please note, I discussed with the patient's daughter and son multiple times during hospitalization. They were very much aware of patient's poor prognosis. Dictated by... Sarah Spaulding/aleena TD: 03/23/2017 14:05 JOB #: [id number] Unit #: [id number] #: [id number] Patient: MIKE MAGANA DISCHARGE SUMMARY Page 1 of 1 X Isa Joe MD DISCHARGE SUMMARY
--- NOTE | ~2017-01-24 | OR ---
Unit #: [id number] #: [id number] Patient: MIKE MAGANA [id number] [address] [address] [id number] I MR#: [id number] NAME: MIKE MAGANA ROOM: [facility] Date of Procedure: 01/30/2017 Admission Date: 01/24/2017 Surgeon: Reese Mckeon M.D. : 1930 Attending Physician: Anthony Rodgers M.D. Primary Care Physician: Clara Olivares M.D. OPERATIVE REPORT PREOPERATIVE DIAGNOSIS Right proximal tibia fracture. POSTOPERATIVE DIAGNOSIS Right proximal tibia fracture. PROCEDURE PERFORMED Closed reduction and casting. ANESTHESIA General. ESTIMATED BLOOD LOSS Zero. DESCRIPTION OF PROCEDURE The patient was brought to the operating room, was given sedation by the Anesthesia Department. After this was done, the C-arm moved into place. The fracture was reduced. She was still in slight valgus, but she is a non-ambulator and then a long leg cast was applied. The C-arm showed the reduction had been maintained and after this was confirmed and the cast was hardened, her general anesthetic reversed. This was a well-padded cast after anesthetic sedation was reversed. She was transferred back to the ICU. Dictated by... Sarah Osei/aleena TD: 01/30/2017 14:50 JOB #: [id number] Unit #: [id number] #: [id number] Patient: MIKE MAGANA OPERATIVE REPORT Page 1 of 1 X Reese Mckeon MD PROCEDURE OPERATIVE NOTE
--- NOTE | ~2017-01-24 | EKG ---
PATIENT: MIKE MAGANA UNIT #: [id number] Ventricular Rate: 88 BPM Atrial Rate: 88 BPM P-R Interval: 154 ms QRS Duration: 82 ms Q-T Interval: 498 ms QTC Calculation(Bezet): 602 ms P [place]: 36 degrees Calculated R [place]: -67 degrees Calculated T [place]: 68 degrees Diagnosis Line: Normal sinus rhythm Diagnosis Line: Left anterior fascicular block Diagnosis Line: Nonspecific T wave abnormality Diagnosis Line: Prolonged QT Diagnosis Line: Abnormal ECG Diagnosis Line: Diagnosis Line: Confirmed by KEN OSMAN MD ([id number]) on Diagnosis Line: 01/27/2017 8:21:50 AM INTERPRETING MD: SUMIT
--- NOTE | ~2017-01-24 | CR72 ---
[facility] A Service of [facility] RADIOLOGY TEXT RESULTS PATIENT: MIKE MAGANA LOCATION: [place] [id number] : 30 UNIT #: [id number] AGE: [address]: Anthony Rodgers MD SEX: F ORDER DR: [id number] [facility] [address] [facility]. [place], [place] [address] [id number] I MR#: [id number] Acc #: [id number] NAME: MIKE MAGANA. : 1930 SEX: F STUDY DATE/TIME: 02/05/2017 3:14 UNIT: [facility] ROOM: [facility] STUDY DESCRIPTION: CR Chest Single View Portable Attending Physician: Anthony Rodgers M.D. Ordering Physician: Loyda Eckert M.D. Primary Care Physician: Clara Olivares M.D. MEDICAL IMAGING REPORT This report is preliminary unless electronic signature is present EXAM AP portable chest DATE 02/05/2017 03:14. HISTORY Status post right thoracentesis 02/02/2017. Respiratory failure today. Symptoms began 01/24/2017. Additional history of COPD, hypertension, dementia, Graves disease. Breast cancer with right mastectomy. COMPARISON AP portable chest 02/04/2017. FINDINGS Dense airspace disease changes in the [id number] lung zones persist with layering small bilateral pleural effusions. Ill-defined infiltrates within the upper lobes noted, with slight improved aeration in the right upper lobe compared to prior. Stable cardiomegaly. Right IJ central line remains in the lower SVC. No visible pneumothorax. Vertebroplasty changes lumbar spine. IMPRESSION 1. Interstitial and alveolar disease changes in both lungs, with more dense consolidations in the bilateral lower lobes. There is slight improved aeration in the right upper lobe compared to prior. Correlate clinically for pneumonia. 2. Stable small layering bilateral pleural effusions. 3. No visible pneumothorax. Dictated by... [facility] A Service [facility] RADIOLOGY TEXT RESULTS PATIENT: MIKE MAGANA LOCATION: [facility] CICCU3-20 : 30 UNIT #: [id number] AGE: [address]: Anthony Rodgers MD SEX: F ORDER DR: Jerri Seth M.D. THIS IS AN ELECTRONICALLY VERIFIED REPORT Jerri Seth M.D. at 02/05/2017 9:39 PM [facility]/lanie TD: 02/05/2017 18:43 JOB #: [id number] MEDICAL IMAGING REPORT Page 1 of 1 COPY
--- NOTE | ~2017-01-24 | OR ---
Unit #: [id number] #: [id number] Patient: MIKE MAGANA [id number] [address] [address] [id number] I MR#: [id number] NAME: MIKE MAGANA ROOM: [facility] Date of Procedure: 02/02/2017 Admission Date: 01/24/2017 Surgeon: Paulina Ledbetter M.D. : 1930 Attending Physician: Anthony Rodgers M.D. Primary Care Physician: Clara Olivares M.D. PROCEDURE OPERATIVE NOTE PROCEDURE PERFORMED Right-sided thoracentesis, diagnostic/therapeutic. INDICATIONS FOR PROCEDURE Respiratory failure. PREMEDICATION Lidocaine topical. DESCRIPTION OF THE PROCEDURE An informed consent was obtained from the patient's daughter after explaining the benefits and risks of this procedure. Patient was prepped and positioned in a proper way. Then, her right back was cleaned with chlorhexidine and then a sterile body drape was applied. Then, with the ultrasound guidance, a needle was inserted in the sixth intercostal space until (1) flow was obtained. Then, a catheter was threaded over the needle and the needle was removed. The catheter was connected to a vacuum bottle and 950 mL of yellowish-clear fluid was obtained. The catheter was removed and clean dressings were applied. Patient tolerated her procedure well with no immediate complications. Stat chest x-ray postop is pending. Dictated by... Paulina Ledbetter M.D. EA/shayne TD: 02/03/2017 06:00 JOB #: [id number] Unit #: [id number] #: [id number] Patient: MIKE MAGANA PROCEDURE OPERATIVE NOTE Page 1 of 1 X PAULINA EDUARDO MD X PROCEDURE OPERATIVE NOTE
--- NOTE | ~2017-01-24 | EKG ---
PATIENT: MIKE MAGANA UNIT #: [id number] Ventricular Rate: 73 BPM Atrial Rate: 68 BPM P-R Interval: 164 ms QRS Duration: 80 ms Q-T Interval: 420 ms QTC Calculation(Bezet): 462 ms Calculated R Inlet: -69 degrees Calculated T Inlet: 59 degrees Diagnosis Line: Sinus rhythm with sinus arrhythmia with occasional Diagnosis Line: Premature ventricular complexes Diagnosis Line: Low voltage QRS Diagnosis Line: Left anterior fascicular block Diagnosis Line: Septal infarct (cited on or before 24-JAN-2017) Diagnosis Line: Abnormal ECG Diagnosis Line: When compared with ECG of 24-JAN-2017 11:34, Diagnosis Line: (unconfirmed) Diagnosis Line: Premature ventricular complexes are now Present Diagnosis Line: Serial changes of Septal infarct Present Diagnosis Line: Confirmed by MACEY BRYANT MD ([id number]) on Diagnosis Line: 01/27/2017 7:29:22 AM INTERPRETING MD: ANNETTE SERRANO
--- NOTE | ~2017-01-24 | CT4 ---
[facility] A Service of [facility] RADIOLOGY TEXT RESULTS PATIENT: MIKE MAGANA LOCATION: [address]20 : 30 UNIT #: [id number] AGE: [address]: Anthony Rodgers MD SEX: F ORDER DR: [id number] [facility] [address] [facility]. [place], [place] [address] [id number] I MR#: [id number] Acc #: [id number] NAME: MIKE MAGANA. : 1930 SEX: F STUDY DATE/TIME: 01/24/2017 21:02 UNIT: [facility] ROOM: [facility] STUDY DESCRIPTION: CT Abd and Pelv Wo Cont Attending Physician: Anthony Rodgers M.D. Ordering Physician: Denys Ledbetter M.D. Primary Care Physician: Clara Olivares M.D. MEDICAL IMAGING REPORT This report is preliminary unless electronic signature is present EXAM CT abdomen and pelvis without contrast HISTORY Abdomen pain and diarrhea today. Sepsis. TECHNIQUE This CT exam was performed with one or more of the following radiation dose reduction techniques: automatic exposure control, adjustment of mA and/or kV according to patient size, and iterative reconstruction. FINDINGS CT abdomen and pelvis was performed without contrast. CT ABDOMEN: Right mastectomy. Mild atelectasis in the posterior right lower lobe. Generalized hepatic parenchymal atrophy. Cholecystectomy. No biliary ductal dilatation. The spleen, kidneys, and adrenal glands are unremarkable. Fatty infiltration of the pancreas. Small descending duodenal diverticulum. No urinary obstruction or bowel obstruction. CT PELVIS: Moderate amount of stool in the rectum. Hysterectomy. Bladder is decompressed by Flores catheter. Internal fixation right hip. No bowel dilatation. Vertebroplasties at L2 and L4. Moderately severe chronic compression fracture of L3. IMPRESSION 1. No acute findings in the abdomen or pelvis. 2. Moderate amount of stool in the rectum. No bowel obstruction. No urinary obstruction. 3. Cholecystectomy and hysterectomy. Dictated by... Ryan Webster M.D. [facility] A Service of [facility] RADIOLOGY TEXT RESULTS PATIENT: MIKE MAGANA LOCATION: [facility]3-20 : 30 UNIT #: [id number] AGE: [address]: Anthony Rodgers MD SEX: F ORDER DR: THIS IS AN ELECTRONICALLY VERIFIED REPORT Ryan Webster M.D. at 01/25/2017 11:34 PM Ashley TD: 01/25/2017 08:21 JOB #: [id number] MEDICAL IMAGING REPORT Page 1 of 1 COPY
--- NOTE | ~2017-01-24 | CO ---
Unit #: [id number] #: [id number] Patient: MIKE MAGANA [id number] [address] [address] [id number] I MR#: [id number] NAME: MIKE MAGANA ROOM: [facility] Age: 86 Sex: F Admission Date: 01/24/2017 : 1930 Attending Physician: Anthony Rodgers M.D. Primary Care Physician: Clara Olivares M.D. CONSULTATION REPORT ADDENDUM IMPRESSION 1. Decreased urine output. PLAN 1. Nephrology is also following the patient and there has been ordered Bumex 2 mg IV after a dose of albumin that will be given, also some potassium 10 mEq x4 doses. As far as anemia, nephrology is suggesting to consider transfusion. We will monitor closely. No signs or symptoms of any bleeding. 2. Yesterday, the patient's hemoglobin was 8.6 and on 01/28/2017, it was 9.8. The patient is currently on a daily dose of subcu Lovenox. We will closely monitor. Dictated by... Matti Corral/aleena TD: 01/31/2017 23:07 JOB #: [id number] CONSULTATION REPORT Page 1 of 1 X Jalyn Raines APRN CONSULTATION REPORT
--- NOTE | ~2017-01-24 | CO ---
Unit #: [id number] #: [id number] Patient: MIKE MAGANA [id number] [address] [place], [place] [address] [id number] I MR#: [id number] NAME: MIKE MAGANA. ROOM: [facility] Age: 86 Sex: F Admission Date: 01/24/2017 : 1930 Attending Physician: Anthony Rodgers M.D. Primary Care Physician: Clara Olivares M.D. Consultation Date: 01/25/2017 CONSULTATION REPORT HISTORY OF PRESENT ILLNESS An 86-year-old white female with recent hip fracture, was admitted because of possible sepsis and dehydration. Source of sepsis was not known. We were asked to look at her sacral buttock area for signs of possible source of sepsis due to pressure. The areas in question are small areas of erythema over buttocks which appeared to be scoot injury and friction. They could be related to the fact that she most likely has a clinical fungal dermatitis moisture associated secondary to her antibiotic therapy and areas of problems related to loose stools and diarrhea. The area does not show any evidence of deep tissue injury at this time. We will call it an unstageable area, but most likely staged II. PLAN At this time, I would recommend using isolated areas of erythema with Silvadene and Lotrisone and zinc due to the areas of possible fungal dermatitis. We will see the patient back for followup on a daily basis until improved. Dictated by... Sarah Khoury/aleena TD: 01/25/2017 08:10 JOB #: [id number] CONSULTATION REPORT Page 1 of 1 X Rashel Aleman MD X CONSULTATION REPORT
--- NOTE | ~2017-01-24 | CR72 ---
[facility] A Service of [facility] RADIOLOGY TEXT RESULTS PATIENT: MIKE MAGANA LOCATION: [address] : 30 UNIT #: [id number] AGE: [address]: Anthony Rodgers MD SEX: F ORDER DR: [id number] [facility] [address] [facility]. [place], [place] [address] [id number] I MR#: [id number] Acc #: [id number] NAME: MIKE MAGANA. : 1930 SEX: F STUDY DATE/TIME: 02/06/2017 3:35 UNIT: [facility] ROOM: [facility] STUDY DESCRIPTION: CR Chest Single View Portable Attending Physician: Anthony Rodgers M.D. Ordering Physician: Loyda Eckert M.D. Primary Care Physician: Clara Olivares M.D. MEDICAL IMAGING REPORT This report is preliminary unless electronic signature is present EXAM Portable chest DATE 02/06/2017 HISTORY Respiratory failure, shortness of breath. Symptoms began 01/24/2017. Status post right thoracentesis 02/02/2017. History breast cancer. COPD. Hypertension. COMPARISON AP portable chest 02/05/2017. FINDINGS Stable cardiomegaly. Wrklf-lm-zlexkrsy left pleural effusion with dense left greater right basilar infiltrates unchanged. Small right pleural effusion also thought to be present but improved. Improved aeration in the right lower lobe since prior. Right IJ central line remains in the SVC. No visible pneumothorax. Vertebroplasty changes are present. Surgical clips project over the right axillary region. IMPRESSION 1. Improved aeration within the right lower lobe since prior study with small right pleural effusion and right basilar infiltrate remaining. 2. Tpgci-bm-zwgvrlnj left pleural effusion and left basilar consolidation is stable. Dictated by... Jerri Seth M.D. [facility] A Service of [facility] & [facility] RADIOLOGY TEXT RESULTS PATIENT: MIKE MAGANA LOCATION: [address] : 30 UNIT #: [id number] AGE: [address]: Anthony Rodgers MD SEX: F ORDER DR: THIS IS AN ELECTRONICALLY VERIFIED REPORT Jerri Seth M.D. at 02/06/2017 9:59 PM Zahraa TD: 02/06/2017 12:15 JOB #: [id number] MEDICAL IMAGING REPORT Page 1 of 1 COPY
--- NOTE | ~2017-01-24 | CR6 ---
[facility] A Service of [facility] & [facility] RADIOLOGY TEXT RESULTS PATIENT: MIKE MAGANA LOCATION: [place] [address] : 30 UNIT #: [id number] AGE: [address]: Anthony Rodgers MD SEX: F ORDER DR: [id number] [facility] [address] [facility]. [place], [place] [address] [id number] I MR#: [id number] Acc #: [id number] NAME: MIKE MAGANA : 1930 SEX: F STUDY DATE/TIME: 02/07/2017 UNIT: [facility] ROOM: [facility] STUDY DESCRIPTION: CR Abdomen Portable Sng View Attending Physician: Anthony Rodgers M.D. Ordering Physician: Sissy Ledbetter M.D. Primary Care Physician: Clara Olivares M.D. MEDICAL IMAGING REPORT This report is preliminary unless electronic signature is present EXAM Portable abdomen 02/07/2017,0921 hours. HISTORY Interval advancement of Dobbhoff tube today. COMPARISON Chest x-ray 02/07/2017 0913 hours. FINDINGS Supine view of the abdomen demonstrates advancement of Dobbhoff tube with tip directed leftward in the left upper quadrant in the proximal stomach. IMPRESSION Dobbhoff tube is directed leftward in the left upper quadrant in the proximal stomach. Dictated by... Nicolasa Greene M.D. THIS IS AN ELECTRONICALLY VERIFIED REPORT Nicolasa Greene M.D. at 02/07/2017 2:31 PM Olamide TD: 02/07/2017 13:45 JOB #: [id number] MEDICAL IMAGING REPORT Page 1 of 1 COPY
--- NOTE | ~2017-01-24 | A ---
[facility] Nutrition Therapy DATE: 02/08/17 Patient: MIKE Coreas CHINO Physician: OLGA Address: [address] [facility] Room/Bed: [address] [place] [address], Zip: [place] [phone] Admit Date: 01/24/17 Date of : 30 Height: 5 2 Weight: 143 65 NUTRITIONAL ASSESSMENT: REASON: Comfort measures note Assessment: Chart reviewed, events noted. Pt is now comfort measures only. Per RN report, DHT remains in place; however, it is not being used. Nutrition intervention is no longer necessary at this time. RD informed RN to consult RD with any further nutritional needs. Please consult RD for any further nutritional needs. Respectfully, RONNIE MA RD, LD Food and Nutritional Services [facility] cc: client file
--- NOTE | ~2017-01-24 | CR72 ---
[facility] A Service of [facility] & [facility] RADIOLOGY TEXT RESULTS PATIENT: MIKE MAGANA LOCATION: [place] [address] : 30 UNIT #: [id number] AGE: [address]: Anthony Rodgers MD SEX: F ORDER DR: [id number] [facility] [address] [facility] [place], [place] [address] [id number] I MR#: [id number] Acc #: [id number] NAME: MIKE MAGANA. : 1930 SEX: F STUDY DATE/TIME: 01/24/2017 19:13 UNIT: [facility] ROOM: [facility] STUDY DESCRIPTION: CR Chest Single View Portable Attending Physician: Anthony Rodgers M.D. Ordering Physician: Ed Boaz Aldana M.D. Primary Care Physician: Clara Olivares M.D. MEDICAL IMAGING REPORT This report is preliminary unless electronic signature is present EXAM Portable chest 01/24/2017. HISTORY 86-year-old female with shortness of air today. Line placement today. COMPARISON Chest 01/24/2017. FINDINGS Frontal chest demonstrates placement of a right IJ central venous catheter. Tip projects over the lower SVC. No pneumothorax. Lungs are clear. Heart size and mediastinum are stable. Pulmonary vasculature unremarkable. IMPRESSION Placement of a right IJ central venous catheter with tip projecting over the lower SVC. No pneumothorax. Dictated by... Robert Mccormack M.D. THIS IS AN ELECTRONICALLY VERIFIED REPORT Robert Mccormack M.D. at 01/25/2017 2:40 PM JOAQUIM/darshan TD: 01/25/2017 07:26 JOB #: [id number] MEDICAL IMAGING REPORT Page 1 of 1 COPY
--- NOTE | ~2017-01-24 | CR253 ---
[facility] A Service of [facility] & [facility] RADIOLOGY TEXT RESULTS PATIENT: MIKE MAGANA LOCATION: [place] [address] : 30 UNIT #: [id number] AGE: [address]: Anthony Rodgers MD SEX: F ORDER DR: [id number] [facility] [address] [facility] [place], [place] [address] [id number] I MR#: [id number] Acc #: [id number] NAME: MIKE MAGANA : 1930 SEX: F STUDY DATE/TIME: 01/25/2017 13:38 UNIT: [facility] ROOM: [facility] STUDY DESCRIPTION: CR Tibia and Fibula 2 Views Rt Attending Physician: Anthony Rodgers M.D. Ordering Physician: Reese Mckeon M.D. Primary Care Physician: Clara Olivares M.D. MEDICAL IMAGING REPORT This report is preliminary unless electronic signature is present EXAM Right tibia and fibula, 01/25/2017, 1338 hours. CLINICAL HISTORY Pain in proximal tibia and fibula since 01/06/2017, when patient fell out of bed. COMPARISON 01/06/2017 FINDINGS AP and lateral views are performed. The posterior splint is present. There are comminuted fractures of the proximal tibial and fibular metaphyses without definite interval healing. No change in alignment. IMPRESSION Mildly comminuted proximal fractures of the tibia and fibula appears similar to 01/06/2017. There is no change in alignment. No definite interval healing. Bones are diffusely osteopenic. Dictated by... Nicolasa Greene M.D. THIS IS AN ELECTRONICALLY VERIFIED REPORT Nicolasa Greene M.D. at 01/26/2017 9:34 AM SANDHYA/donavan TD: 01/25/2017 21:21 JOB #: [id number] MEDICAL IMAGING REPORT Page 1 of 1 COPY
--- NOTE | ~2017-01-24 | OR ---
Unit #: [id number] #: [id number] Patient: MIKE MAGANA [id number] [address] [address] [id number] I MR#: [id number] NAME: MIKE MAGANA ROOM: [facility] Date of Procedure: 02/07/2017 Admission Date: 01/24/2017 Surgeon: Paulina Ledbetter M.D. : 1930 Attending Physician: Anthony Rodgers M.D. Primary Care Physician: Clara Olivares M.D. PROCEDURE OPERATIVE NOTE PROCEDURE Therapeutic and diagnostic bronchoscopy with bronchial washing INDICATION FOR PROCEDURE Complete left-sided collapse from mucous plugs. PREOPERATIVE DIAGNOSIS Respiratory failure. POSTOPERATIVE FINDING Very thick large mucous plug extended from the level of the nhi into the left main bronchus and left lower lobe. PREMEDICATION Versed 2 mg IV x1. DESCRIPTION OF THE PROCEDURE An informed consent was obtained from the patient's family after explaining the benefits and risks of this procedure. The patient was prepped and positioned in a proper way then Versed 1 mg x1 was given which was repeated again in five minutes. The bronchoscope was advanced through the oral cavity and at the level of the vocal cord 2% lidocaine x10 mL was instilled then the bronchoscope was passed through the vocal cord, into the trachea and at the level of the nhi a large thick greenish/brownish mucous plug color was noted which was flushed multiple times with normal saline flushes then was aspirated out. The bronchoscope was advanced into the left main bronchus and the left upper lobe, lingula and left lower lobe were examined which appeared intact except for erythema and again copious amount of secretion which was lavaged and aspirated. Then washing was obtained from the left lower lobe. The bronchoscope was retracted and then readvanced into the right main bronchus and the right upper lobe, right lower lobe and right middle lobe were examined which appeared normal except for some minimal secretion which was aspirated out. The bronchoscope was retracted out then and patient tolerated this procedure well with no immediate complication. Dictated by... Paulina Ledbetter M.D. Unit #: [id number] #: [id number] Patient: MIKE MAGANA EA/cf TD: 02/07/2017 21:09 JOB #: [id number] PROCEDURE OPERATIVE NOTE Page 1 of 1 X PAULINA EDUARDO MD PROCEDURE OPERATIVE NOTE
--- NOTE | ~2017-01-24 | OR ---
Unit #: [id number] #: [id number] Patient: MIKE MAGANA [id number] [address] [address] [id number] I MR#: [id number] NAME: MIKE MAGANA. ROOM: [facility] Date of Procedure: 02/02/2017 Admission Date: 01/24/2017 Surgeon: Paulina Ledbetter M.D. : 1930 Attending Physician: Anthony Rodgers M.D. Primary Care Physician: Clara Olivares M.D. PROCEDURE OPERATIVE NOTE PROCEDURE Diagnostic and therapeutic bronchoscopy with bronchial washing. INDICATION FOR PROCEDURE Recurrent mucus plug. PREOP DIAGNOSIS Respiratory failure. POSTOP DIAGNOSIS Recurrent, thick, large mucus plug obstructing the left main bronchus. PREMEDICATION 1. Lidocaine 2% 10 mL topical. 2. Versed 1 mg IV x1. DESCRIPTION OF THE PROCEDURE An informed consent was obtained from the patient's daughter after explaining the benefit and risk of this procedure. The patient was prepped and positioned in a proper way and then patient was premedicated with versed. Then, the bronchoscope was advanced through the oral cavity and, at the level of the vocal cords, 2% lidocaine x10 mL were instilled and the bronchoscope was advanced through the vocal cord with no complication. At the level of the nhi, 1% lidocaine was instilled and the bronchoscope was advanced into the left main bronchus and a large, thick, mucus plug was noted again which was lavaged and flushed with no complication. Then, the bronchoscope was pushed deeper and the left upper lobe, lingula and left lower lobe were examined and a bronchial washing was obtained from the left lower lobe. Then, the bronchoscope was retracted and then readvanced into the right main bronchus and the right upper lobe, right middle lobe and right lower lobe were examined which appeared normal with no endobronchial lesions or secretions. The patient tolerated her procedure well with no immediate complications. Dictated by... Paulina Ledbetter M.D. EA/fauzia Unit #: [id number] #: [id number] Patient: MIKE MAGANA TD: 02/03/2017 06:22 JOB #: [id number] PROCEDURE OPERATIVE NOTE Page 1 of 1 X PAULINA EDUARDO MD PROCEDURE OPERATIVE NOTE
--- NOTE | ~2017-01-24 | CR72 ---
[facility] A Service of [facility] & [facility] RADIOLOGY TEXT RESULTS PATIENT: MIKE MAGANA LOCATION: [place] [address] : 30 UNIT #: [id number] AGE: [address]: Anthony Rodgers MD SEX: F ORDER DR: [id number] [facility] [address] [facility] [place], [place] [address] [id number] I MR#: [id number] Acc #: [id number] NAME: MIKE MAGANA : 1930 SEX: F STUDY DATE/TIME: 02/02/2017 9:38 UNIT: [facility] ROOM: [facility] STUDY DESCRIPTION: CR Chest Single View Portable Attending Physician: Anthony Rodgers M.D. Ordering Physician: Sissy Ledbetter M.D. Primary Care Physician: Clara Olivares M.D. MEDICAL IMAGING REPORT This report is preliminary unless electronic signature is present EXAM AP chest HISTORY Left thoracentesis. TECHNIQUE A single AP view of the chest was obtained following thoracentesis. FINDINGS There is markedly improved aeration of the left lung since the previous examination. Infiltrates on the right are unchanged. No pneumothorax seen. IMPRESSION Marked improvement in the left lung following thoracentesis. No evidence of pneumothorax. Dictated by... Mariano Burgess M.D. THIS IS AN ELECTRONICALLY VERIFIED REPORT Mariano Burgess M.D. at 02/02/2017 3:38 PM CELESTEF/vijay TD: 02/02/2017 09:50 JOB #: [id number] MEDICAL IMAGING REPORT Page 1 of 1 COPY
--- NOTE | ~2017-01-24 | HP ---
Unit #: [id number] #: [id number] Patient: MIKE MAGANA [id number] [address] [address] [id number] I MR#: [id number] NAME: MIKE MAGANA. ROOM: [facility] Age: 86 Sex: F Admission Date: 01/24/2017 : 1930 Attending Physician: Anthony Rodgers M.D. Primary Care Physician: Clara Olivares M.D. HISTORY AND PHYSICAL CHIEF COMPLAINT Altered mental status and confusion, garbled speech. HISTORY OF PRESENT ILLNESS This is an 86-year-old female who was recently discharged from the hospital on 01/06/2017 after being treated for right tibia-fibula fracture. Supportive care was decided. The patient had a cast placed and sent to rehab facility. She returned yesterday because of garbled speech and she had decreased mental status. The patient was admitted for possible sepsis. Her lactic acid was about 3. The patient is not able to provide much history. Most of the history was taken from ER notes. I do know her history pretty well from the past. There is no history of fevers, chills or rigors from what I can see. She does have history of some trouble swallowing. She does not have teeth. She does have dentures, but she does not use them much. There was some complaint of nausea. Some complaint of diarrhea, although details are not known. There is a complaint of intermittent foul smelling urine. The patient seems to be comfortable. Is being evaluated in ICU, bed 20. The patient is on pressors at this time. PAST MEDICAL HISTORY 1. History of right tibia-fibula fracture recently. 2. Chronic kidney disease. 3. Hypertension. 4. COPD. 5. Dementia. 6. History of breast cancer status post right-sided mastectomy. 7. History of Graves disease status post radioactive treatment and now postprocedural hypothyroidism. 8. History of T12 compression fracture. 9. History of osteoporosis. PAST SURGICAL HISTORY 1. History of appendectomy. 2. History of cholecystectomy. 3. History of mastectomy. FAMILY HISTORY Unremarkable. ALLERGIES Sulfa. SOCIAL HISTORY Unit #: [id number] #: [id number] Patient: MIKE MAGANA The patient is at [facility] at this time. No history of smoking, alcohol or drug abuse. HOME MEDICATIONS 1. Loratadine 10 mg daily. 2. Synthroid 100 mcg daily. 3. Remeron 15 mg daily. 4. Memantine/Aricept 28/10 mg q.h.s. 5. Norvasc 10 mg daily. 6. Bumex 2 mg b.i.d. 7. Centrum Silver daily. 8. Heparin 5,000 units b.i.d. REVIEW OF SYMPTOMS As per history of present illness. PHYSICAL EXAMINATION GENERAL: The patient is being evaluated in ICU. VITAL SIGNS: Blood pressure 120/38, respiratory rate 16, pulse 63, temperature 97.9, oxygen saturation 100%. The patient is on Levophed at this time. HEENT: Head is normocephalic. Eye movements are normal. NECK: Neck is supple. RESPIRATORY: Chest has fair air entry. Decreased at the bases. CVS: S1, S2 positive. Regular rhythm. ABDOMEN: Soft. EXTREMITIES: Negative edema. There is a cast placed on the right side. 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 DIAGNOSTIC STUDIES LAB WORKUP: Urinalysis is normal. WBC 11.9, hemoglobin 10.9, hematocrit 32.7 and platelet count of 243. Lactic acid 3.6, sodium 143, potassium 3.6, BUN 48, creatinine 1.9. BNP 162. Troponin is less than 0.05. PT is 11.4, INR 1.1. IMAGING: CT scan of the head without contrast was done in the ER, which shows no acute intracranial abnormality appreciated. CT scan of the abdomen was done in the ER that showed no acute finding in the abdomen or pelvis. Moderate amount of stool in the rectum is seen. CT scan of the chest is pending. ASSESSMENT AND PLAN 1. Patient is being admitted to ICU with sepsis. 2. Hypotension. 3. Right tibia-fibula fracture. 4. Rule out bacteremia; etiology of sepsis is unknown at this time. 5. Stage 2 decubitus ulcer, unlikely to be any infection. 6. Acute on chronic kidney disease. 7. COPD. 8. Hypothyroidism. 9. History of dementia. PLAN Admitted to ICU. LSA has evaluated the patient. Doubt there is any decubitus ulcer infection. The patient does have stage 2 on the sacrum area. Silvadene to area of (1) and Lotrisone 60 grams and Unit #: [id number] #: [id number] Patient: MIKE MAGANA zinc oxide 15 grams mixed to buttocks and perineum area b.i.d. and p.r.n. The patient will receive Diflucan 200 mg IV daily for 3 days. The patient has been evaluated by Dr. Mckeon for her right tibia-fibula fracture. The patient's x-ray is being done all over again to evaluate and plan further treatment. The patient has been seen by Dr. Ledbetter. Chest CT is pending. The patient is being started on midodrine 10 mg t.i.d. and Lovenox 30 mg subcu daily. The patient will have [facility] pain management as needed. Procalcitonin level is being done. Echocardiogram is being ordered for ventricular function. Dictated by Sarah Spaulding TD: 01/25/2017 15:21 JOB #: [id number] HISTORY AND PHYSICAL Page 1 of 1 X Isa Joe MD X HISTORY AND PHYSICAL
--- NOTE | ~2017-01-24 | CR72 ---
[facility] A Service of [facility] RADIOLOGY TEXT RESULTS PATIENT: MIKE MAGANA LOCATION: SED : 30 UNIT #: [id number] AGE: [address]: Dean Hoskins MD SEX: F ORDER DR: [id number] [address] [address] [id number] MR#: [id number] Acc #: [id number] NAME: MIKE MAGANA : 1930 SEX: F STUDY DATE/TIME: 01/24/2017 12:43 UNIT: SED ROOM: STUDY DESCRIPTION: CR Chest Single View Portable Attending Physician: Dean Hoskins M.D. Ordering Physician: Dean Hoskins M.D. Primary Care Physician: Clara Olivares M.D. MEDICAL IMAGING REPORT This report is preliminary unless electronic signature is present. EXAM Chest 01/24/2017 1243 hours HISTORY 86-year-old woman who lost her ability to speak yesterday evening. History of breast carcinoma, hypertension. History provided by patient's son. COMPARISON 08/19/2014. FINDINGS Single portable view of the chest demonstrates normal heart size. The aorta is mildly tortuous and atherosclerotic without change. The lungs are clear. IMPRESSION No acute cardiopulmonary findings. No change from 08/19/2014. STAT * RESULT Dictated by... Nicolasa Greene M.D. THIS IS AN ELECTRONICALLY VERIFIED REPORT Nicolasa Greene M.D. at 01/24/2017 2:17 PM SANDHYA/vijay TD: 01/24/2017 13:18 JOB #: [id number] [facility] A Service of [facility] RADIOLOGY TEXT RESULTS PATIENT: MIKE MAGANA LOCATION: SED : 30 UNIT #: [id number] AGE: [address]: Daen Hoskins MD SEX: F ORDER DR: MEDICAL IMAGING REPORT Page 1 of 1
--- NOTE | ~2017-01-24 | CR72 ---
[facility] A Service of [facility] & [facility] RADIOLOGY TEXT RESULTS PATIENT: MIKE MAGANA LOCATION: [address] : 30 UNIT #: [id number] AGE: [address]: Anthony Rodgers MD SEX: F ORDER DR: [id number] [facility] [address] [place], [place] [address] [id number] I MR#: [id number] Acc #: [id number] NAME: MIKE MAGANA : 1930 SEX: F STUDY DATE/TIME: 02/07/2017 09:13 UNIT: [facility] ROOM: [facility] STUDY DESCRIPTION: CR Chest Single View Portable Attending Physician: Anthony Rodgers M.D. Ordering Physician: Sissy Ledbetter M.D. Primary Care Physician: Clara Olivares M.D. MEDICAL IMAGING REPORT This report is preliminary unless electronic signature is present EXAM Chest portable, 02/07/2017, 0913 hours. CLINICAL HISTORY Patient is status post bronchoscopy for whiteout of the left lung. Shortness of air. Evaluate tube placement. COMPARISON 02/07/2017 FINDINGS Portable upright chest demonstrates markedly improved aeration of the left upper lung. There is persistent left basilar density, which appears to be a combination of pleural fluid and atelectasis. There is persistent airspace change in the right mid lung. There is no pneumothorax. Right IJ catheter tip is in the SVC near the junction with right atrium. There is a flexible feeding tube tip present over the lower esophagus projecting at the T10 level. Suggest advancing 10-15 cm. IMPRESSION 1. Post bronchoscopy, there is marked improved aeration of the upper lung on the left. There is persistent left basilar density, which appears to be mostly pleural fluid, although underlying consolidation is likely present as well. There is airspace change at the right base and right effusion unchanged. There is no pneumothorax. 2. Stable right IJ catheter with tip in SVC. 3. Flexible feeding tube tip is in the distal esophagus at approximately the T10 level. Suggest advancing 10-15 cm. Dictated by... Nicolasa Greene M.D. THIS IS AN ELECTRONICALLY VERIFIED REPORT [facility] A Service of [facility] & [facility] RADIOLOGY TEXT RESULTS PATIENT: IMKE MAGANA LOCATION: [address] : 30 UNIT #: [id number] AGE: [address]: Anthony Rodgers MD SEX: F ORDER DR: Nicolasa Greene M.D. at 02/07/2017 2:31 PM SANDHYA/shayne TD: 02/07/2017 13:38 JOB #: [id number] MEDICAL IMAGING REPORT Page 1 of 1 COPY
--- NOTE | ~2017-01-24 | CO ---
Unit #: [id number] #: [id number] Patient: MIKE MAGANA [id number] [facility] [address] [place], [place] [address] [id number] I MR#: [id number] NAME: MIKE MAGANA. ROOM: [facility] Age: 86 Sex: F Admission Date: 01/24/2017 : 1930 Attending Physician: Anthony Rodgers M.D. Primary Care Physician: Clara Olivares M.D. Consultation Date: 02/04/2017 CONSULTATION REPORT REASON FOR CONSULTATION Followup. DISCUSSION Ms. Cooper is an 86-year-old white female, seen in room 20, CCU-3 at [facility]. The patient was receiving BiPAP. Anxious and nervous patient, lying comfortably in bed. The patient dressed in hospital attire. The patient was unable to give any coherent history. History obtained from the family member, the nursing staffs, and chart reviewed. The patient is still having problem with the confusion, but no agitation, sleeping good. No side effects from medication. The patient is on Namenda XR 28 mg at bedtime, Aricept 10 mg at bedtime. The patient was on Remeron, but which was discontinued. The patient is on Solu-Medrol 40 mg q.8 hourly, which is causing her to have increased anxiety. Vital signs; pulse 76, respirations 14, blood pressure 105/41, and oxygen saturation 95%. MENTAL STATUS EXAMINATION GENERAL APPEARANCE: The patient dressed in hospital attire, lying comfortably in bed, receiving BiPAP. Attention and concentration, poor. Speech, slow. Orientation, unable to assess. Mood and affect, flat. Thought process and thought content, unable to assess. Recent and remote memory, unable to assess. Language and fund of knowledge, unable to assess. Insight and judgment, impaired. 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 ASSESSMENT/PLAN Supportive psychotherapy and psychoeducation provided to the patient's family. The patient unable to comprehend much. Advised to continue with current medication. If needed, consider further adjustment of medication. Please feel free to call if any questions, telephone [phone]. Dictated by... Sarah Rivas/aleena TD: 02/04/2017 21:25 Unit #: [id number] #: [id number] Patient: MIKE MAGANA JOB #: [id number] CONSULTATION REPORT Page 1 of 1 X Damaso Garcia MD X CONSULTATION REPORT
--- NOTE | ~2017-01-24 | CR72 ---
[facility] A Service of [facility] & [facility] / [facility] RADIOLOGY TEXT RESULTS PATIENT: MIKE MAGANA LOCATION: [place] [address]-20 : 30 UNIT #: [id number] AGE: [address]: Anthony Rodgers MD SEX: F ORDER DR: [id number] [facility] [address] [place], [place] [address] [id number] I MR#: [id number] #: [id number] NAME: MIKE MAGANA. : 1930 SEX: F STUDY DATE/TIME: 02/03/2017 5:58 UNIT: [facility] ROOM: [facility] STUDY DESCRIPTION: CR Chest Single View Portable Attending Physician: Anthony Rodgers M.D. Ordering Physician: Sissy Ledbetter M.D. Primary Care Physician: Clara Olivares M.D. MEDICAL IMAGING REPORT This report is preliminary unless electronic signature is present EXAM Portable chest 02/03/2017 HISTORY 86-year-old female with shortness of air for 11 days. COMPARISON Chest 02/02/2017. FINDINGS Frontal chest demonstrates a stable right IJ central venous catheter. No pneumothorax. Persistent patchy bilateral pulmonary opacities, right greater than left. Small bilateral pleural effusions are unchanged. Heart size and mediastinum stable. IMPRESSION 1. Stable right IJ central venous catheter. No pneumothorax. 2. No interval change in patchy bilateral pulmonary opacities, right greater than left. No change in small bilateral pleural effusions. Dictated by... Robert Mccormack M.D. THIS IS AN ELECTRONICALLY VERIFIED REPORT Robert Mccormack M.D. at 02/03/2017 12:15 PM JOAQUIM/vijay TD: 02/03/2017 07:14 JOB #: [id number] MEDICAL IMAGING REPORT Page 1 of 1 COPY
--- NOTE | ~2017-01-24 | CO ---
Unit #: [id number] #: [id number] Patient: MIKE RODRIGUEZ [id number] [facility] [address]. [place], [place] [address] [id number] I MR#: [id number] NAME: MIKE RODRIGUEZ ROOM: [facility] Age: 86 Sex: F Admission Date: 01/24/2017 : 1930 Attending Physician: Anthony Rodgers M.D. Primary Care Physician: Clara Olivares M.D. Consultation Date: 02/03/2017 CONSULTATION REPORT DISCUSSION Ms. Allison Rodriguez is an 86-year-old white female, seen in room CCU-3, bed 20 on 02/03/2017 at [facility]. The patient was sitting comfortably in a recliner, receiving oxygen. Able to answer questions appropriately. The patient still somewhat confused, problem with memory, but no agitation. Reports able to sleep good, compliant with medication. The patient still feeling sad, depressed, anxious. The patient denied any suicidal or homicidal ideation. The patient's vital signs; pulse 84, respirations 20, blood pressure 114/54, oxygen saturation 96%. MENTAL STATUS EXAMINATION General appearance; the patient dressed casually, thin built, receiving oxygen. Sitting in a recliner. Attention span and concentration, fair to poor. Speech, slow in volume. Oriented in self and place. Mood and affect, sad, dysphoric, flat. Thought process, circumstantial. Thought content, the patient denied any thoughts of harming self or others or any hallucination. Recent and remote memory, fair to poor. Language, fair. Fund of knowledge, fair to slightly impaired. Insight and judgment, fair to slightly impaired. 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 ASSESSMENT AND PLAN 1. Supportive psychotherapy and psychoeducation provided to the patient. 2. Educated about benefits and side effects of medication and course and prognosis of illness. 3. Continue with current medication. If needed, consider adding Remeron. We will continue to follow. Please feel free to call if any questions telephone #[phone]. Dictated by... Sarah RivasC/aleena TD: 02/04/2017 11:48 JOB #: [id number] Unit #: [id number] #: [id number] Patient: MIKE RODRIGUEZ CONSULTATION REPORT Page 1 of 1 X Damaso Garcia MD CONSULTATION REPORT
--- NOTE | ~2017-01-24 | EKG ---
PATIENT: MIKE MAGANA UNIT #: [id number] Ventricular Rate: 83 BPM Atrial Rate: 83 BPM P-R Interval: 158 ms QRS Duration: 80 ms Q-T Interval: 342 ms QTC Calculation(Bezet): 401 ms P Harper: 80 degrees Calculated R Harper: -47 degrees Calculated T Harper: -179 degrees Diagnosis Line: Normal sinus rhythm Diagnosis Line: Low voltage QRS Diagnosis Line: Left anterior fascicular block Diagnosis Line: Poor R wave progression questionable lead position Diagnosis Line: or body habitus Diagnosis Line: Abnormal ECG Diagnosis Line: When compared with ECG of 25-JAN-2017 16:43, Diagnosis Line: Premature ventricular complexes are no longer Diagnosis Line: Present Diagnosis Line: Questionable change in initial forces of Septal Diagnosis Line: leads Diagnosis Line: Nonspecific T wave abnormality, worse in Lateral Diagnosis Line: leads Diagnosis Line: QT has shortened Diagnosis Line: Confirmed by KEN OSMAN MD ([id number]) on Diagnosis Line: 02/02/2017 7:09:36 AM INTERPRETING MD: SUMIT
--- NOTE | ~2017-01-24 | CR72 ---
[facility] A Service of [facility] & [facility] RADIOLOGY TEXT RESULTS PATIENT: MIKE MAGANA LOCATION: [place] [address]20 : 30 UNIT #: [id number] AGE: [address]: Anthony Rodgers MD SEX: F ORDER DR: [id number] [facility] [address] [place], [place] [address] [id number] I MR#: [id number] #: [id number] NAME: MIKE MAGANA. : 1930 SEX: F STUDY DATE/TIME: 01/30/2017 04:16 UNIT: [facility] ROOM: [facility] STUDY DESCRIPTION: CR Chest Single View Portable Attending Physician: Anthony Rodgers M.D. Ordering Physician: Anthony Rodgers M.D. Primary Care Physician: Clara Olivares M.D. MEDICAL IMAGING REPORT This report is preliminary unless electronic signature is present EXAM Portable chest 01/30/2017 at 04:16 INDICATION Septic shock, confusion, shortness of air, hypotension for 6 days. History of breast cancer. FINDINGS AP portable chest compared with 01/24/2017. Right IJ line near the cavoatrial junction. There has been interval development of small to moderate bilateral pleural effusions with new infiltrates in the right gqy-dw-ttepe lung and left base. No pneumothorax. Dictated by... Mariano Gomez Jr., M.D. THIS IS AN ELECTRONICALLY VERIFIED REPORT Mariano Gomez Jr., M.D. at 01/30/2017 9:11 PM SAMANTHA/vijay TD: 01/30/2017 12:19 JOB #: [id number] MEDICAL IMAGING REPORT Page 1 of 1 COPY
--- NOTE | ~2017-01-24 | FU ---
[facility] Nutrition Therapy DATE: 02/06/17 Patient: MIKE MAGANA Physician: OLGA Address: [address] Room/Bed: [address], Zip: [place] [address] Admit Date: 01/24/17 Date of : 30 Height: 5 2 Weight: 143 65 NUTRITION MONITORING/FOLLOW-UP: Reason: Nutrition follow up Anthropometrics: Ht: 5'2" Adm wt: 61 kg BMI: 23 Wt 02/06: 65 kg Labs: Gluc 192 BUN 97 Creat 2.4 GFR 17.7 Meds: Therapeutic formula, synthroid, bumex, solu-medrol, lopressor, zofran, pepcid, colace, bisacodyl, remeron I&O's: 720/725, last BM 02/06 Skin: Stage I redness to left buttock Skin tears left lower leg (multiple, bloody) Bruising BUE/ BLE Redness to right buttock Edema: Generalized- MARY/ hips/ trunk/ pubis Left ankle/ pedal- trace/ weeping Estimated Nutrition Needs: 1118-1773 kcals (25-30 kcals/kg) 61-79 grams protein (1.0-1.3 grams/kg) Assessment: Chart reviewed, events noted. Pt remains in ICU with poor/ minimal nutritional intake, skin breakdown and edema per RN report. Pt has consumed 30% of an Ensure and 100% of an applesauce today. RN reports that a conversation will likely be held with family to discuss goals of care. RN also reports that the pt may need HD . Pt just had another [employer] eval per MD orders. [employer] recommends continuing pureed foods and thin liquids. It is evident that the pt is not going to eat enough PO to meet her nutritional needs. Please see recommendations below. Dx: Inadequate protein-energy intake RT decreased appetite, advanced age AEB RN reports minimal/ poor intake, edema. Intervention: 1. [employer] 2. Enteral nutrition if appropriate [facility] Nutrition Therapy DATE: 02/06/17 Patient: MIKE MAGANA Physician: OLGA Address: [address] [facility] Room/Bed: [address], Zip: [place] [address] Admit Date: 01/24/17 Date of : 30 Height: 5 2 Weight: 143 65 Monitoring, Evaluation and Goals: 1. Oral intake; consume 50-100% of meals- NOT MET 2. Skin; promote healing- NOT MET 3. Weight; prevent weight loss- UNABLE TO MEASURE D/T EDEMA NEW GOALS: 4. Improve labs; glucose, BUN, creat 5. Weight; monitor fluid status, weight changes 6. EN; initiate if appropriate Recommendations: 1. Continue diet per [employer] recommendations. No further dietary restrictions recommended at this time. 2. Continue Ensure strawberry, encouraging patient to drink one supplement TID. 3. If appropriate per MD discretion and based on the pt's goals of care, recommend obtaining enteral access due to poor nutritional intake. If ordered by MD, recommend initiating enteral nutrition with Jevity 1.5 @ 20 mL/hr x 20 hrs. Increase by 10 mL q 8 hrs as tolerated to goal of 60 mL/hr x 20 hrs. PLEASE NOTE: Enteral nutrition would need to be held for two hours before and two hours following administration of Synthroid Status: Pt is at moderate nutritional risk. RD will continue to follow. Respectfully, RONNIE MA RD, LD Food and Nutritional Services [facility] cc: client file
--- NOTE | ~2017-01-24 | CT71 ---
[facility] A Service of [facility] & [facility] / [facility] RADIOLOGY TEXT RESULTS PATIENT: MIKE MAGANA LOCATION: [facility] CICCU3-20 : 30 UNIT #: [id number] AGE: [address]: Anthony Rodgers MD SEX: F ORDER DR: [id number] [address] [address] [id number] MR#: [id number] Acc #: [id number] NAME: MIKE MAGANA : 1930 SEX: F STUDY DATE/TIME: 01/24/2017 12:42 UNIT: SED ROOM: STUDY DESCRIPTION: CT Head Wo Contrast Attending Physician: Dean Hoskins M.D. Ordering Physician: Dean Hoskins M.D. Primary Care Physician: Clara Olivares M.D. MEDICAL IMAGING REPORT This report is preliminary unless electronic signature is present. EXAM Head CT without contrast HISTORY Loss of speech. History given by the patient's son. Speech loss occurred yesterday. Patient has a history of previous CVA and currently in rehab for right leg fracture. Patient also has a history of hypertension and breast cancer 20 years ago. COMMENTS Routine noncontrast head CT is reviewed. There is a comparison from 08/20/2014. TECHNIQUE This CT exam was performed with one or more of the following radiation dose reduction techniques: automatic exposure control, adjustment of mA and/or kV according to patient size, and iterative reconstruction. FINDINGS There is no displaced calvarial fracture. The mastoid air cells are clear. There is an air-fluid level left sphenoid sinus with some retained secretions consistent with a component of acute sinusitis. Otherwise the visualized paranasal sinuses are essentially clear. Patient has had cataract surgery bilaterally. There is mild periventricular white matter low-attenuation which is nonspecific but probably due to small vessel disease. There is a small lacune at the left cerebellar hemisphere. This is chronic. There is no evidence for acute intracranial hemorrhage or extraaxial fluid collection. There is no intracranial mass effect. No acute cortical infarct is suspected. Mild periventricular white matter low-attenuation is chronic and not greatly changed allowing for technique differences on comparison [facility] A Service of [facility] & [facility] / [facility] RADIOLOGY TEXT RESULTS PATIENT: MIKE MAGANA LOCATION: [facility] CIC3-20 : 30 UNIT #: [id number] AGE: [address]: Anthony Rodgers MD SEX: F ORDER DR: to 2014. No intracranial mass effect. IMPRESSION 1. No acute intracranial abnormalities appreciated but there is clinical concern for acute CVA, followup imaging would be recommended preferably with MRI. 2. Redemonstration of probable sequelae of small vessel disease. 3. Small air-fluid level in the left sphenoid sinus consistent with a component of acute sinusitis. Dictated by... Greer Shah M.D. THIS IS AN ELECTRONICALLY VERIFIED REPORT Greer Shah M.D. at 01/25/2017 7:28 AM FAIZAN/eugene TD: 01/24/2017 22:03 JOB #: [id number] MEDICAL IMAGING REPORT Page 1 of 1
--- NOTE | ~2017-01-24 | OR ---
Unit #: [id number] #: [id number] Patient: MIKE MAGANA [id number] [address] [address] [id number] I MR#: [id number] NAME: MIKE MAGANA ROOM: [facility] Date of Procedure: 02/01/2017 Admission Date: 01/24/2017 Surgeon: Paulina Ledbetter M.D. : 1930 Attending Physician: Anthony Rodgers M.D. Primary Care Physician: Clara Olivares M.D. PROCEDURE OPERATIVE NOTE PREOPERATIVE DIAGNOSIS Mucus plug. POSTOPERATIVE DIAGNOSIS Mucus plug. PROCEDURE PERFORMED Therapeutic and diagnostic bronchoscopy with bronchial washing. PREOPERATIVE MEDICATIONS 1. Lidocaine 2% topical. 2. Versed 1 mg. 3. Phenergan 12.5 mg IV. DESCRIPTION OF PROCEDURE An informed consent was obtained from the patient herself after explaining the benefit and risk of this procedure. The patient was prepped and positioned in a proper way, then she was premedicated, then the bronchoscope was advanced through the oral cavity. At the level of the vocal cord, 2% lidocaine x6 mL was instilled. Then the bronchoscope was advanced through the vocal cord and immediately patient was noted to have a large thick yellowish mucus plug extending from the level of the mid trachea into the left main bronchus which was lavaged on multiple normal saline flushes. Then bronchial washing was obtained from the left lower lobe. The left upper lobe, lingula, and left lower lobe were examined which appeared normal except for the mucus plug. The bronchoscope was retracted and then re-advanced in the right main bronchus and the right upper lobe, right middle lobe, and right lower lobe were examined which appeared normal with no endobronchial mass or lesions. The bronchoscope was retracted out then and patient tolerated her procedure well with no immediate complications. Dictated by... Paulina Ledbetter M.D. EA/mayda TD: 02/01/2017 16:00 JOB #: [id number] Unit #: [id number] #: [id number] Patient: MIKE MAGANA PROCEDURE OPERATIVE NOTE Page 1 of 1 X PAULINA EDUARDO MD PROCEDURE OPERATIVE NOTE
--- NOTE | ~2017-01-24 | CO ---
Unit #: [id number] #: [id number] Patient: MIKE PICHARDO [id number] [address] [place], [place] [address] [id number] MR#: [id number] NAME: MIKE PICHARDO ROOM: [facility] Age: 86 Sex: F Admission Date: 01/24/2017 : 1930 Attending Physician: Anthony Rodgers M.D. Primary Care Physician: Clara Olivares M.D. Consultation Date: 01/31/2017 CONSULTATION REPORT REASON FOR CONSULTATION Some abnormalities on the telemetry monitoring. The concern was some ST elevation and complains of back pain, which questionable equivalent to angina. HISTORY OF PRESENT ILLNESS This is an 86-year-old white female with a history of dementia. She recently was discharged to rehab on 01/12/2017 with fracture of her right tibia and fibula. She has a cast as supportive care. She has a history of COPD, reformed smoker, hypertension, chronic kidney disease. She has hypothyroidism secondary to Graves disease, history of breast cancer and has a T12 compression fracture. The patient was transferred from the rehab a few days ago with altered mental status changes and some garbled speech and poor appetite. The patient's lactic acid on admission was 3. As mentioned, she does have dementia and she is a poor historian. Most information is provided from the chart, family and medical staff. She had to be started on pressors due to hypotension. It is felt that maybe she had a sacral wound or may be UTI. Since admission, the patient's overall status has improved. She was just taken off the pressors in the last 12 hours. She is on IV antibiotics. The patient yesterday had a closed reduction of the fracture on the right tibia and fibula with a cast applied. At that time, she did fairly well. No further complications. The patient remains on IV fluids for now. During the night, the patient has complaints of some back pain and the nurse looked at her telemetry and said she had some ST elevation on the telemetry leads. Cardiac enzymes were done and they were negative. They consulted just to make sure that there are no cardiac issues at this time. According to information, there was no indication that the patient has had any cardiac workup in the past. Her EF was 50% to 55% on echo that was done here. PAST MEDICAL HISTORY 1. Recent right tibia and fibula fracture, went to rehab on 01/12/2017 and yesterday had closed reduction of the fracture of the right tibia and fibula with a cast applied. 2. 01/25/2017, 2D echo, LVEF of 50% to 55% with [id number] tricuspid regurgitation with elevated RVSP 48 mmHg. 3. Chronic kidney disease. 4. Hypertension. 5. COPD. 6. History of Graves disease with status post radiation and post hypothyroidism. Unit #: [id number] #: [id number] Patient: MIKE PICHARDO 7. T12 compression fracture. 8. History of breast cancer, status post right mastectomy. 9. Dementia. 10. Reformed smoker. PAST SURGICAL HISTORY 1. Right mastectomy for breast cancer. 2. Radiation for Graves disease and now has hypothyroidism. 3. 01/30/2017, had closed reduction of the right knee with cast placement by Dr. Mckeon. 4. Appendectomy. 5. Cholecystectomy. 6. Mastectomy. HOME MEDICATIONS Loratadine 10 mg p.o. daily, Synthroid 100 mcg p.o. daily, Remeron 15 mg p.o. daily, Namzaric 28/10 mg 1 tablet p.o. at bedtime, Norvasc 10 mg p.o. daily, Bumex 2 mg p.o. b.i.d. and p.r.n., vitamins 1 tablet p.o. daily, heparin 5000 units subcu b.i.d., this was at rehab. ALLERGIES Sulfonamides, Keflex. SOCIAL HISTORY The patient has been living with her son prior to being at rehab post tibia-fibula fracture. Reformed smoker. No alcohol or illicit drug abuse. FAMILY HISTORY Noncontributory. REVIEW OF SYSTEMS See details in HPI. PHYSICAL EXAMINATION GENERAL: On exam, Ms. Pichardo is an 86-year-old white female, in no acute respiratory distress. She is awake, alert, answers in simple yes/no to questions, but has a very poor memory recall. VITAL SIGNS: Currently, blood pressure is 127/44, heart rate 88, respirations 18, temperature 97.6, O2 saturations 99% on room air. NECK: Trachea midline. No thyromegaly or lymphadenopathy. Normal carotid upstrokes. No jugular venous distention. HEART: S1, S2. Regular rate and rhythm. Soft systolic murmur at left sternal border. LUNGS: Diminished, especially on the right with fine rales. ABDOMEN: Soft and nontender. EXTREMITIES: Pedal pulses are palpable in the left and toes are warm to touch on the right. Foot has a cast in the right leg. NEUROLOGIC: No neuro deficits except for poor memory recall. DIAGNOSTIC STUDIES LABORATORY RESULTS: ABG yesterday; pH is 7.383, pCO2 of 39, pO2 of 74.8, O2 saturations 95.1. Glucose is 116, BUN 20, creatinine 0.7, eGFR 78.5. Sodium 130, potassium 3.6, chloride 104, CO2 of 24, calcium is 8.6, total protein 4.9, albumin 3.5, bilirubin total is 1.0. AST 19, ALT 18. On admission, the patient's albumin was down as low as 1.7, alkaline phosphatase is 123. CK total is 40 with troponin 0.03. BNP 1232, lactic acid 2.0. INR is 1.1. WBC 5.6, hemoglobin is down to 7.2, hematocrit 21.8 and platelets is 107. Urinalysis; leuk esterase, there was a trace Unit #: [id number] #: [id number] Patient: MIKE PICHARDO J urobilinogen 0.2, 2+ blood, 5 to 10 rbc's. Stool is positive for C difficile and so far, blood cultures are negative. IMAGING STUDIES: Chest x-ray done on 01/30/2017 shows interval development of small to moderate bilateral pleural effusions with new infiltrates in the right mid to lower lung and left base. No pneumothorax. CARDIOVASCULAR STUDIES: EKG today shows normal sinus rhythm with low voltage, left anterior fascicular block, possible anterolateral Q-waves, poor R-wave progression. IMPRESSION 1. Sepsis. 2. Clostridium difficile. 3. New large pleural effusion. 4. Back pain, questionable equivalency to angina with abnormal telemetry, elevated T-waves on telemetry. 5. Acute kidney injury. 6. Malnutrition. Poor nutritional intake. 7. Hypothyroidism from Graves disease. 8. Chronic obstructive pulmonary disease. 9. Hypotension, which has improved, currently off pressors and has a history of hypertension. 10. T12 compression fracture. 11. History of mastectomy for breast cancer. 12. Left ventricular ejection fraction of 50% to 55%, xwgb-tj-iggmlsbu tricuspid regurgitation, elevated right ventricular systolic pressure of 48 mmHg. 13. Dementia. PLAN 1. Cardiology was consulted because the patient complained of back pain and there is some concern that she had some ST elevations on her telemetry strips. EKG was obtained and it looks normal. No elevation. The patient has no signs or symptoms of unstable angina. No chest pain. The patient is off her Levophed. Her blood pressures are running in the low 100s and 110s. She is being treated for C difficile colitis. 2. Cardiac enzymes are negative. 3. Plans are for possibly a thoracentesis for new pleural effusion, especially on the right. 4. On exam, there are no signs or symptoms of acute congestive heart failure. The patient may need some IV diuretics for her pleural effusions, but we will wait until her blood pressure stabilizes. 5. As far as the patient's close reduction of her tibia-fibula fracture, she seems to be stable. 6. PT and OT to evaluate and treat. 7. Further recommendations pending per Dr. Gupta. Thank you very much for allowing us to assist in the care. We will talk with the family. The patient is a do not resuscitate, conservative medical management. Dictated by... Matti Corral/soll TD: 02/01/2017 01:56 Unit #: [id number] #: [id number] Patient: MIKE PICHARDO JOB #: [id number] CONSULTATION REPORT Page 1 of 1 X Jalyn Raines APRN CONSULTATION REPORT
--- NOTE | ~2017-01-24 | XA203 ---
[facility] A Service of [facility] & [facility] RADIOLOGY TEXT RESULTS PATIENT: MIKE MAGANA LOCATION: [address] : 30 UNIT #: [id number] AGE: [address]: Anthony Rodgers MD SEX: F ORDER DR: [id number] [facility] [address] [facility]. [place], [place] [address] [id number] I MR#: [id number] Acc #: [id number] NAME: MIKE MAGANA : 1930 SEX: F STUDY DATE/TIME: 02/01/2017 10:42 UNIT: [facility] ROOM: [facility] STUDY DESCRIPTION: XA Thoracentesis Attending Physician: Anthony Rodgers M.D. Ordering Physician: Sissy Ledbetter M.D. Primary Care Physician: Clara Olivares M.D. MEDICAL IMAGING REPORT This report is preliminary unless electronic signature is present EXAM Ultrasound-guided thoracentesis on the right HISTORY Development of bilateral pleural effusion is 2 days ago TECHNIQUE Informed consent was obtained from the patient and a formal time-out procedure was utilized. Sterile technique was employed including prepping with Hibiclens, sterile drape, ultrasound cover and sterile gel. DESCRIPTION OF PROCEDURE Using sterile technique and following local anesthesia with Xylocaine, a sheath needle was placed in the pleural fluid collection at the right lung base under ultrasound guidance with permanent ultrasound images recorded. A total of 400 mL of fluid was aspirated. Some of the fluid was sent for laboratory analysis as requested by the ordering service. The patient tolerated the procedure well. A chest x-ray will be obtained following thoracentesis to evaluate for pneumothorax with results reported separately. IMPRESSION Technically successful ultrasound-guided right thoracentesis with 400 mL of fluid obtained. Dictated by... Mariano Burgess M.D. THIS IS AN ELECTRONICALLY VERIFIED REPORT Mariano Burgess M.D. at 02/02/2017 3:41 PM RLF/to TD: 02/01/2017 16:57 [facility] A Service of [facility] & [facility] RADIOLOGY TEXT RESULTS PATIENT: MIKE MAGANA LOCATION: [address] : 30 UNIT #: [id number] AGE: [address]: Anthony Rodgers MD SEX: F ORDER DR: JOB #: [id number] MEDICAL IMAGING REPORT Page 1 of 1 COPY
--- NOTE | ~2017-01-24 | CO ---
Unit #: [id number] #: [id number] Patient: MIKE PICHARDO [id number] [address] [place], [place] [address] [id number] I MR#: [id number] NAME: MIKE PICHARDO. ROOM: [facility] Age: 86 Sex: F Admission Date: 01/24/2017 : 1930 Attending Physician: Anthony Rodgers M.D. Primary Care Physician: Clara Olivares M.D. CONSULTATION REPORT REASON FOR CONSULT Right tib-fib fracture. HISTORY OF PRESENT ILLNESS Ms. Pichardo is an 86-year-old female who presented back to the ICU unit after being discharged under the care of Dr. Rodgers with possible sepsis. We were asked to see the patient for right tib-fib fracture. This happened around 01/06/2017. Apparently she was here and was just too sick to actually do a closed reduction in the operating room. Today she does report she has pain in her right lower extremity. She rates her pain at approximately a 6 or 7 on a scale of 1-10. She denied any numbness or tingling. The patient is not ambulating. She does have a posterior splint on her right lower extremity. PAST MEDICAL HISTORY 1. History of acute kidney injury. 2. Hypertension. 3. COPD. 4. Dementia. ALLERGIES Sulfa. MEDICATIONS Levophed, Tylenol, vancomycin, Pepcid, Claritin, Synthroid, Namenda, Aricept, multivitamin. SOCIAL HISTORY She did live at her sons, but she was admitted to [facility]. She denies the use of tobacco, alcohol. REVIEW OF SYSTEMS CONSTITUTIONAL: Denies weight gain or weight loss. EYES: Denies any double vision or blurred vision. LUNGS: Denies any shortness of air. MUSCULOSKELETAL: Admits to pain in her right lower extremity but definitely not worse than it was on admission last time. Twelve complete systems were attempted to be reviewed and are negative, but because of her dementia, this appeared to be somewhat unreliable. PHYSICAL EXAMINATION GENERAL: She is well developed, well nourished, in no acute distress. Alert and oriented x3. VITAL SIGNS: Her temperature is 97.9, blood pressure 120/38, heart rate Unit #: [id number] #: [id number] Patient: MIKE PICHARDO J 63 and regular, and respirations 16. HEENT: Normocephalic, atraumatic. PERRLA. Extraocular movements were intact. Conjunctivae are clear. RESPIRATORY: Her lungs were clear to auscultation. No accessory muscle use. Equal expansion bilaterally. ABDOMEN: Soft, nontender, nondistended. Positive bowel sounds. MUSCULOSKELETAL: Examination of her right lower extremity - Her posterior splint was removed to look at her skin to be sure there were no open wounds, and there were not. There was bruising consistent with her fracture. Neurovascular exam appeared to be intact. She could wiggle her toes. Her knee was not put through any range of motion because of known fracture. I do not have any recent x-rays. EXTREMITIES: No clubbing, cyanosis or edema. SKIN: No rashes, lesions or ulcers. NEUROLOGIC: Grossly intact. DIAGNOSTIC STUDIES LABORATORY: Sodium is 142, potassium 3.5, chloride 116, CO2 18, BUN 33, creatinine 1.5, glucose 157. INR is 1.1. WBC is 14.5, hemoglobin 9.9. X-RAYS: None of her right lower extremity. ASSESSMENT Known right tib-fib fracture that has been almost 3 weeks since this happened. PLAN We will go ahead and get x-rays. We will rewrap with a posterior splint at this point. If we do see some healing, we could utilize a knee immobilizer but will wait and see x-rays first. I will discuss this patient with Dr. Mckeon. Dictated by... Tj Frazier P.A.-C- for Sarah Osei/khalida TD: 01/25/2017 09:39 JOB #: [id number] CONSULTATION REPORT Page 1 of 1 X X CONSULTATION REPORT
--- NOTE | ~2017-01-24 | CO ---
Unit #: [id number] #: [id number] Patient: MIKE MAGANA [id number] [address] [address] [id number] I MR#: [id number] NAME: MIKE MAGANA. ROOM: [facility] Age: 86 Sex: F Admission Date: 01/24/2017 : 1930 Attending Physician: Anthony Rodgers M.D. Primary Care Physician: Clara Olivares M.D. Consultation Date: 01/25/2017 CONSULTATION REPORT REASON FOR CONSULT ICU management. REASON FOR TRANSFER TO ICU FROM CORRECTION Altered mental status and low blood pressure. HISTORY OF PRESENT ILLNESS Apparently the patient was recovering at the residential from a right tib-fib fracture. She was doing well, per family, until yesterday when she was noted to be confused. The patient was transferred to [facility] ER where she was noted to be hypotensive, so she was transferred to our ICU for further evaluation and management. Her lactic acid was elevated on presentation, and her blood pressure soon dropped to mid 80s, and she was placed on a Levophed drip. The patient denied any nausea, vomiting; however, she is having loose stools. She is in no respiratory distress, and she denies any coughing. The patient had a low-grade fever at the residential. PAST MEDICAL HISTORY 1. Hypertension. 2. COPD. 3. Dementia. 4. Graves disease. 5. Hypothyroidism. 6. History of breast cancer. 7. T12 compression. 8. Right fib-tib fracture. PAST SURGICAL HISTORY 1. Mastectomy. 2. Cholecystectomy. 3. Appendectomy. SOCIAL HISTORY No history of alcohol, drug abuse or smoking. FAMILY HISTORY Unremarkable. ALLERGIES Sulfa. HOME MEDICATIONS Unit #: [id number] #: [id number] Patient: MIKE MAGANA 1. Loratadine. 2. Losartan. 3. HCTZ. 4. Synthroid. 5. Remeron. REVIEW OF SYSTEMS Twelve-point review of systems was obtained to our best ability from the patient, and she denied anything except for what was mentioned above. PHYSICAL EXAMINATION GENERAL: The patient does not appear in acute distress; however, she is hypotensive and she is needing high dose of Levophed. VITAL SIGNS: Blood pressure currently 110/62, respiratory rate 16, O2 saturation 98% on 2 liters nasal cannula. HEENT: Atraumatic, normocephalic. PERRLA, EOMI. NECK: Supple. No JVD. No lymphadenopathy. CHEST: Decreased breath sounds bilaterally but no crackles or rhonchi. HEART: S1, S2. No murmur, gallops or rubs. ABDOMEN: Soft, nontender. Bowel sounds positive. No hepatosplenomegaly. EXTREMITIES: She has +1 edema in the lower extremities with cast around her right lower extremity. SKIN: No rashes. 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 No focal motor/sensory deficits; however, she was confused on presentation. LABS AND OTHER TESTS LABS: Creatinine 1.5, chloride 113, AST 63, ALT 47. White blood count 14.9, hemoglobin 9.9, platelets 249. IMAGING TESTS: Reviewed and noted by me. ASSESSMENT 1. Septic shock. 2. Altered mental status/TME. 3. Acute on chronic kidney disease. 4. Chronic anemia. 5. History of COPD. 6. Hypertension. PLAN 1. The patient is critical on escalated dose of Levophed. 2. Will add midodrine. I will obtain cortisol level. 3. No obvious and clear source of infection at this point, so the patient will need CT chest, abdomen and pelvis to rule out any primary source of infection. 4. Broad-spectrum antibiotics pending culture. 5. Two-D echo to rule out any cardiogenic shock. 6. IV hydration with caution. 7. Follow lactic acid. 8. DVT prophylaxis. Dictated by... Paulina Ledbetter M.D. EA/khalida Unit #: [id number] #: [id number] Patient: MIKE MAGANA TD: 01/25/2017 16:06 JOB #: [id number] CONSULTATION REPORT Page 1 of 1 X PAULINA EDUARDO MD CONSULTATION REPORT
--- NOTE | ~2017-01-24 | CR72 ---
[facility] A Service of [facility] / [facility] RADIOLOGY TEXT RESULTS PATIENT: MIKE MAGANA LOCATION: [address] : 30 UNIT #: [id number] AGE: [address]: Anthony Rodgers MD SEX: F ORDER DR: [id number] [facility] [address] [facility]. [place], [place] [address] [id number] I MR#: [id number] Acc #: [id number] NAME: MIKE MAGANA : 1930 SEX: F STUDY DATE/TIME: 02/07/2017 5:41 UNIT: [facility] ROOM: [facility] STUDY DESCRIPTION: CR Chest Single View Portable Attending Physician: Anthony Rodgers M.D. Ordering Physician: Sissy Ledbetter M.D. Primary Care Physician: Clara Olivares M.D. MEDICAL IMAGING REPORT This report is preliminary unless electronic signature is present EXAM AP portable chest. DATE 02/07/2017 HISTORY Respiratory failure. Symptoms present for 14 days. History of breast cancer, status post right thoracentesis on 02/02/2017. Dementia, Graves disease. COMPARISON AP portable chest, 02/06/2017. FINDINGS There is near-complete opacification of the left hemithorax with mediastinal shift toward the left, suggesting complete left lung atelectasis. Underlying left pleural effusion not excluded. Small layering right pleural effusion with right basilar infiltrate unchanged. Osteopenia. Lumbar vertebroplasty. Right IJ central line extends to the lower SVC. No visible pneumothorax. IMPRESSION 1. New complete left hemithorax opacification with mediastinal shift toward the left. Findings may represent changes of mucous plugging with complete left lung atelectasis. Underlying layering left pleural effusion not excluded. 2. Small right pleural effusion with right basilar infiltrate unchanged. Dictated by... Jerri Seth M.D. [facility] A Service of [facility] RADIOLOGY TEXT RESULTS PATIENT: MIKE MAGANA LOCATION: [address] : 30 UNIT #: [id number] AGE: [address]: Anthony Rodgers MD SEX: F ORDER DR: THIS IS AN ELECTRONICALLY VERIFIED REPORT Jerri Seth M.D. at 02/07/2017 9:52 PM JOSE EDUARDO/carlyn TD: 02/07/2017 10:27 JOB #: [id number] MEDICAL IMAGING REPORT Page 1 of 1 COPY
--- NOTE | ~2017-01-24 | A ---
[facility] Nutrition Therapy DATE: 01/25/17 Patient: MIKE MAGANA Physician: OLGA Address: [address] [facility] Room/Bed: [address], Zip: [place] [address] Admit Date: 01/24/17 Date of : 30 Height: 5 2 Weight: 134 61 NUTRITIONAL ASSESSMENT: REASON: 1 nutritional risk point re: pressure ulcer 86 y/o female admitted for sepsis, AMS PMH: MIKHAIL, HTN, COPD, dementia Anthropometrics: ht: 5'2" wt: 134# (61 kg) BMI 23 Labs: Cl- 113, Glu 148, BUN 34, Creat 1.5, Ca++ 7.8, Alb 2.2, AST 63, ALT 47, GFR 31.2 Meds: levophed, remeron, synthroid, zosyn, NaCl I/O & Bowel function: 4289/607. BM 01/24 Skin Integrity: Stage 2 pressure ulcer- LT buttocks; abrasions, bruising- LLE Estimated Nutrition Needs: Increased 2' Stage 2 pressure ulcer Diet: Clear liquids Assessment: Chart reviewed, events noted. Pt in ICU on 2L nasal cannula. RD corporate communications intern visited pt at bedside, family in room. Family reports that the pt likes to drink ensure at home. Weights are stable per family. Pt is on clear liquid diet, [employer] has recommended diet advance to dental soft + thin liquids. Please see recommendations, RD to follow. Dx: Inadequate protein-energy intake r/t current condition AEB Stage 2 pressure ulcer, non-healing Intervention: 1. Dental soft + thin liquid diet 2. Ensure TID Monitoring, Evaluation and Goals: 1. Intake; consume/tolerate >50% of all meals and supplements 2. Weight; promote healthy weight maintenance 3. Skin; promote healing, prevent further breakdown Recommendations: 1. Advance to [employer] recommended diet + Raymond Ensure TID. 2. Encourage adequate PO intake. [facility] Nutrition Therapy DATE: 01/25/17 Patient: MIKE MAGANA Physician: OLGA Address: [address] [facility] Room/Bed: [address], Zip: [place] [address] Admit Date: 01/24/17 Date of : 30 Height: 5 2 Weight: 134 61 3. Monitor labs. 4. MVI + minerals for wound healing support. RD will f/u per protocol as pt is at mild/moderate nutritional risk. Respectfully, ROHINI JOAQUIN RD, LD [employer] [facility] cc: client file
--- NOTE | ~2017-01-24 | CO ---
Unit #: [id number] #: [id number] Patient: JULIANNE PICHARDO [id number] [address] [address] [id number] I MR#: [id number] NAME: JULIANNE PICHARDO ROOM: [facility] Age: 86 Sex: F Admission Date: 01/24/2017 : 1930 Attending Physician: Anthony Rodgers M.D. Primary Care Physician: Clara Olivares M.D. Consultation Date: 02/02/2017 CONSULTATION REPORT REASON FOR CONSULTATION Followup with patient. Ms. Julianne Pichardo is an 86-year-old female seen on 02/02/2017 in CCU-III bed 20. The patient was dressed in hospital attire, somewhat sleepy, recently had bronch this morning. The patient unable to give any coherent information. Patient turned. Information obtained from nursing staff and patient's son who was at the bedside. The patient is doing better, making progression, more coherent. The patient tolerating medication fairly well. Patient was on Remeron in the past. Patient was admitted with sepsis No agitation. Pulse 77, blood pressure 98/43, oxygen saturation 92. REVIEW OF SYSTEMS Complete review of system is unremarkable. PHYSICAL EXAMINATION GENERAL APPEARANCE: Patient is dressed in hospital attire, lying comfortably in bed. Attention span and concentration poor. Speech slow. Orientation to self, mood and affect are labile. Thought process circumstantial. Thought content guarded. Denied any thoughts of harming self or others, any hallucination. Recent and remote memory poor. Language fair. Fund of knowledge fair. Insight and judgement impaired. DIAGNOSTIC STUDIES Psychiatric: 1. Major depressive disorder, recurrent F33.2. 2. 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 ASSESSMENT/PLAN 1. Supportive psychotherapy and psychoeducation provided to the patient and family. Patient unable to comprehend much. 2. Advised to continue with current medication. Consider adding Remeron 7.5 mg at bedtime. We will continue to follow. Please feel free to call with any questions, telephone number . Dictated by... Damaso Garcia M.D. Unit #: [id number] #: [id number] Patient: JULIANNE PICHARDO JONNY/diego TD: 02/03/2017 09:13 JOB #: [id number] CONSULTATION REPORT Page 1 of 1 X Damaso Garcia MD CONSULTATION REPORT
--- NOTE | ~2017-01-24 | CO ---
Unit #: [id number] #: [id number] Patient: JULIANNE RODRIGUEZ [id number] [facility] [address] [place], [place] [address] [id number] MR#: [id number] NAME: JULIANNE RODRIGUEZ ROOM: [facility] Age: 86 Sex: F Admission Date: 01/24/2017 : 1930 Attending Physician: Anthony Rodgers M.D. Primary Care Physician: Clara Olivares M.D. Consultation Date: 02/01/2017 CONSULTATION REPORT REASON FOR CONSULTATION Dementia, confusion. HISTORY OF PRESENT ILLNESS Ms. Julianne Rodriguez is an 86-year-old white female, seen in room CCU-3, bed 20 on 02/01/2017 at [facility]. The patient dressed in hospital attire, lying in a propped up position, receiving oxygen, has Oxymizer. The patient's son was at the bedside, the patient was able to recognize and able to give some information. The patient does have dementia and poor historian. Most of the information obtained from the chart, medical staff, as well as from the family who was at the bedside. The patient did not show any agitation, has poor appetite and sleep problems. The patient has multiple health condition and recently had a right tibia and fibula fracture and went to rehab on 01/12/2017. The patient also has hypertension, COPD, chronic kidney disease. The patient's vital signs; temperature 98.4, heart rate 81, respirations 17, blood pressure 117/46, and oxygen saturation 94%. PAST PSYCHIATRIC HISTORY Remarkable for history of dementia. MEDICAL HISTORY Remarkable for history of recent right tibia and fibula fracture and rehab on 01/12/2017, chronic kidney disease, hypertension, COPD, history of Graves disease status post radiation, T12 compression fracture, history of breast cancer status post right mastectomy, and dementia. MEDICATIONS The patient is on loratadine, Synthroid, Remeron, Norvasc, vitamin tablet and heparin. ALLERGIES Sulfonamide and Keflex. FAMILY HISTORY AND SOCIAL HISTORY The patient has a good support system. No history of abuse. No history of substance abuse. REVIEW OF SYSTEMS Complete review of systems unremarkable. MENTAL STATUS EXAMINATION Vital signs; please see above. General appearance; the patient is thin built, dressed in hospital attire, lying comfortably in ICU bed. Unit #: [id number] #: [id number] Patient: JULIANNE RODRIGUEZ Attention span and concentration, fair to poor. Speech, slow in volume with long pauses. Oriented in self and place. Mood and affect were labile. Thought process was circumstantial. Thought content, the patient denied any thoughts of harming self or others or any hallucination, but somewhat guarded. Recent and remote memory, fair to slightly impaired. Language, fair. Fund of knowledge, fair to slightly impaired. Insight and judgment, fair to slightly impaired. DIAGNOSES Psychiatric: Major neurocognitive disorder secondary to Alzheimer disease without behavioral disturbances, F02.80; major depressive disorder, recurrent, severe, F33.2. Secondary diagnosis: Deferred. Medical diagnosis: Please refer to H and P. Stressors: Psychosocial stressor. ASSESSMENT/PLAN 1. Supportive psychotherapy and psychoeducation provided to patient and family. 2. Educated about benefits and side effects of medication and course and prognosis of illness. 3. Advised to continue with current medication combination. The patient is on Aricept and Namenda advised to continue. The patient was on Remeron, plan to resume that medication. If needed, consider medication such as low dose of Risperdal. We will continue to follow. Please feel free to call if any questions, telephone #[phone]. Dictated by... Sarah Rivas/aleena TD: 02/01/2017 23:13 JOB #: [id number] CONSULTATION REPORT Page 1 of 1 X Damaso Garcia MD X CONSULTATION REPORT
--- NOTE | ~2017-01-24 | CT57 ---
[facility]. [facility] A Service of [facility] & [facility] RADIOLOGY TEXT RESULTS PATIENT: MIKE MAGANA LOCATION: [place] [id number] : 30 UNIT #: [id number] AGE: [address]: Anthony Rodgers MD SEX: F ORDER DR: [id number] [facility] [address] [place], [place] [address] [id number] I MR#: [id number] Acc #: [id number] NAME: MIKE MAGANA : 1930 SEX: F STUDY DATE/TIME: 01/25/2017 UNIT: [facility] ROOM: [facility] STUDY DESCRIPTION: CT Chest Wo Cont Attending Physician: Anthony Rodgers M.D. Ordering Physician: Sissy Ledbetter M.D. Primary Care Physician: Clara Olivares M.D. MEDICAL IMAGING REPORT This report is preliminary unless electronic signature is present EXAM CT chest without contrast 01/25/2017 1413 hours HISTORY 86-year-old woman with septic shock, unclear source. No current chest complaints. COMPARISON Chest film 01/24/2017. Abdomen CT 01/24/2017. TECHNIQUE Helical non-contrasted images were obtained from the thoracic inlet through the adrenal glands. Sagittal and coronal reconstructions were performed. No contrast was administered. Total exam DLP 713 mGy/cm. This CT exam was performed with one or more of the following radiation dose reduction techniques: automatic exposure control, adjustment of mA and/or kV according to patient size, and iterative reconstruction. FINDINGS Images through the thoracic inlet demonstrate a right IJ catheter with tip terminating in the SVC just above the right atrium. There is no thyroid mass or adenopathy. Images through the chest demonstrate diffuse atherosclerotic changes of the aorta with normal-caliber ascending and descending thoracic aorta. Pulmonary arteries, cardiac chambers and pericardium are normal. The prominence of the left ventricle is unchanged. There is no pericardial fluid. The patient has small dependent bilateral pleural effusions which have increased since yesterday's exam. The lungs demonstrate calcified granulomata. There is very minimal [facility] A Service of [facility] & [facility] RADIOLOGY TEXT RESULTS PATIENT: MIKE MAGANA LOCATION: [address] : 30 UNIT #: [id number] AGE: [address]: Anthony Rodgers MD SEX: F ORDER DR: atelectasis at the bases adjacent to the pleural effusions. There is new stok-ka-xhucnpff ascites in the upper abdomen not present on yesterday's CT abdomen. IMPRESSION 1. The patient has slight increase in small dependent pleural effusions and new or increased ascites in the upper abdomen as compared to the CT abdomen study of 01/24/2017. There is mild bibasilar atelectasis adjacent to the effusions but there is no evidence of pneumonia. 2. There is a left ventricular enlargement, similar to prior exam. There is no pericardial fluid. No aortic aneurysm. Dictated by... Nicolasa Greene M.D. THIS IS AN ELECTRONICALLY VERIFIED REPORT Nicolasa Greene M.D. at 01/26/2017 9:34 AM Geovany TD: 01/25/2017 21:25 JOB #: [id number] MEDICAL IMAGING REPORT Page 1 of 1 COPY
--- NOTE | ~2017-01-24 | CR72 ---
[facility] A Service of [facility] RADIOLOGY TEXT RESULTS PATIENT: MIKE MAGANA LOCATION: [place] [address] : 30 UNIT #: [id number] AGE: [address]: Anthony Rodgers MD SEX: F ORDER DR: [id number] [facility] [address] [place], [place] [address] [id number] I MR#: [id number] Acc #: [id number] NAME: MIKE MAGANA : 1930 SEX: F STUDY DATE/TIME: 02/08/2017 2:32 UNIT: [facility] ROOM: [facility] STUDY DESCRIPTION: CR Chest Single View Portable Attending Physician: Anthony Rodgers M.D. Ordering Physician: Sissy Ledbetter M.D. Primary Care Physician: Clara Olivares M.D. MEDICAL IMAGING REPORT This report is preliminary unless electronic signature is present EXAM AP portable chest. DATE 02/08/2017 at 02:32. HISTORY Respiratory failure. Symptoms began 15 days ago on 01/24/2017. History of breast cancer. Status post right thoracentesis on 02/02/2017. Additional history of dementia, Graves disease, COPD, hypertension. COMPARISON AP portable chest, 02/07/2017. FINDINGS There is dense left lower lobe retrocardiac consolidation and/or [id number]-[id number]-ikhfkdgc left pleural effusion without significant change. Small layering right pleural effusion persists with ill-defined right basilar infiltrate. Enteric feeding tube has been advanced below the level of the diaphragm with the tip not included in the field of view. Vertebroplasty changes in lumbar spine. Surgical clips in the right chest wall. IMPRESSION 1. Left basilar consolidation and/or [id number] left pleural effusion, ill-defined right basilar infiltrate with small right pleural effusion, without significant change. No visible pneumothorax. 2. Dobbhoff tube advancement below the level of the diaphragm. Dictated by... Jerri Seth M.D. THIS IS AN ELECTRONICALLY VERIFIED REPORT [facility] A Service of [facility] RADIOLOGY TEXT RESULTS PATIENT: MIKE MAGANA LOCATION: [facility] 218-01 : 30 UNIT #: [id number] AGE: [address]: Anthony Rodgers MD SEX: F ORDER DR: Jerri Seth M.D. at 02/08/2017 9:55 PM JOSE EDUARDO/shayne TD: 02/08/2017 06:08 JOB #: [id number] MEDICAL IMAGING REPORT Page 1 of 1 COPY
[~2017-01-24 11:25] MED LIST changes: +ALLERCLEAR10 MG PO; +NAMZARIC 28 MG1 EACH PO; +PATIENT'S PHARMACY; +REMERON PO; +SYNTHROID PO
[2017-01-24 12:11] LABS: URINE SOURCE CLEAN CATCH
[2017-01-24 12:13] LABS: URINE APPEARANCE CLEAR; URINE BILIRUBIN NEG (NEG); URINE BLOOD NEG (NEG); URINE COLOR YELLOW; URINE GLUCOSE NEG (NORM); URINE KETONE NEG (NEG); URINE LEUKOCYTE ESTERASE NEG (NEG); URINE NITRATE NEG (NEG); URINE PROTEIN NEG (NEG)
[2017-01-24 12:14] LABS: MICRO INDICATED? NO
[2017-01-24 12:25] LABS: BASOPHIL# 0.1 X10e3 (0-0.3); BASOPHIL% 0.7 % (0-2.5); DIFF IND NO; EOSINOPHIL# 0.3 X10e3 (0-0.7); EOSINOPHIL% 2.5 % (0.0-7.0); HEMATOCRIT 32.7 % (35.0-45.0); HEMOGLOBIN 10.9 gm/dL (12.0-16.0); LYMPHOCYTE# 1.4 X10e3 (1.0-3.5); LYMPHOCYTE% 11.5 % (17.0-45.0); MEAN CORPUSCULAR HEMOGLOBIN 33.5 PG (28-34); MEAN CORPUSCULAR HGB CONC 33.5 g/dL (30-36); MEAN PLATELET VOLUME 8.5 FL (6.5-11.5); MONOCYTE# 1.2 X10e3 (0-1.0); MONOCYTE% 10.5 % (3.0-12.0); NEUTROPHIL# 8.9 X10e3 (1.5-7.1); NEUTROPHIL% 74.8 % (40-75); PLATELET COUNT 243 X10e3 (140-420); RED BLOOD COUNT 3.27 X10e (3.90-5.30); RED CELL DISTRIBUTION WIDTH 17.4 % (11.0-15.5); WHITE BLOOD COUNT 11.9 X10e3 (4.0-10.5)
[2017-01-24 12:42] LABS: ALBUMIN SERUM 2.7 g/dL (3.5-5.0); BILIRUBIN,TOTAL 1.1 mg/dL (0.2-2.0); BUN/CREATININE RATIO 25.26; CALCIUM SERUM 9.1 mg/dL (8.4-10.2); CREATININE SERUM 1.9 mg/dL (0.6-1.4); GLOM FILT RATE Estimated 23.5 mL/min (>60); POTASSIUM 3.6 mmol/L (3.5-5.1); PROTEIN TOTAL SERUM 5.6 g/dL (6.0-8.3)
[2017-01-24 13:38] LABS: POC - CKMB 1.2 ng/mL (0.0-7.9); POC - TROPONIN <0.05 ng/mL (<=0.05)
[2017-01-24] MEDS ORDERED: NORVASC10 MG PO (14:35)
[2017-01-24] MEDS ORDERED: BUMEX2 MG PO (14:36)
[2017-01-24] MEDS ORDERED: CENTRUM SILVER1 EAC3 PO (14:36)
[2017-01-24] MEDS ORDERED: HEPARIN SO5000 UNIT2 SUBQ (14:37)
[2017-01-24 20:33] LABS: HEMATOCRIT 27.8 % (35.0-45.0); MEAN CELL VOLUME 102.5 FL (83-96); MEAN CORPUSCULAR HEMOGLOBIN 32.5 PG (28-34); MEAN CORPUSCULAR HGB CONC 31.7 g/dL (30-36); MEAN PLATELET VOLUME 8.5 FL (6.5-11.5); RED BLOOD COUNT 2.72 X10e (3.90-5.30); RED CELL DISTRIBUTION WIDTH 18.3 % (11.0-15.5); WHITE BLOOD COUNT 10.9 X10e3 (4.0-10.5)
[2017-01-24 20:38] LABS: HEMOGLOBIN 8.8 gm/dL (12.0-16.0); INR 1.1; PROTHROMBIN TIME (PATIENT) 11.4 SECONDS (10.0-11.7)
[2017-01-25 05:21] LABS: BASOPHIL# 0.1 X10e3 (0-0.3); BASOPHIL% 0.6 % (0-2.5); EOSINOPHIL# 0.3 X10e3 (0-0.7); EOSINOPHIL% 1.9 % (0.0-7.0); HEMATOCRIT 31.3 % (35.0-45.0); HEMOGLOBIN 9.9 gm/dL (12.0-16.0); LYMPHOCYTE# 1.6 X10e3 (1.0-3.5); MEAN CELL VOLUME 102.5 FL (83-96); MEAN CORPUSCULAR HEMOGLOBIN 32.3 PG (28-34); MEAN CORPUSCULAR HGB CONC 31.5 g/dL (30-36); MEAN PLATELET VOLUME 8.7 FL (6.5-11.5); MONOCYTE% 13.4 % (3.0-12.0); NEUTROPHIL# 10.9 X10e3 (1.5-7.1); NEUTROPHIL% 73.1 % (40-75); RED BLOOD COUNT 3.05 X10e (3.90-5.30); RED CELL DISTRIBUTION WIDTH 17.8 % (11.0-15.5); WHITE BLOOD COUNT 14.9 X10e3 (4.0-10.5)
[2017-01-25 05:31] LABS: PLATELET COUNT 249 X10e3 (140-420)
[2017-01-25 05:32] LABS: DIFF IND NO
[2017-01-25 05:58] LABS: CALCIUM SERUM 7.9 mg/dL (8.4-10.2); CREATININE SERUM 1.5 mg/dL (0.6-1.4); GLOM FILT RATE Estimated 31.2 mL/min (>60); POTASSIUM 3.5 mmol/L (3.5-5.1)
[2017-01-25 09:36] LABS: ALBUMIN SERUM 2.2 g/dL (3.5-5.0); BILIRUBIN,TOTAL 1.6 mg/dL (0.2-2.0); BUN/CREATININE RATIO 22.66; CALCIUM SERUM 7.8 mg/dL (8.4-10.2); CREATININE SERUM 1.5 mg/dL (0.6-1.4); GLOM FILT RATE Estimated 31.2 mL/min (>60); POTASSIUM 3.5 mmol/L (3.5-5.1); PROTEIN TOTAL SERUM 4.8 g/dL (6.0-8.3)
[2017-01-26 07:48] LABS: BASOPHIL# 0.1 X10e3 (0-0.3); BASOPHIL% 0.8 % (0-2.5); EOSINOPHIL# 0.5 X10e3 (0-0.7); EOSINOPHIL% 3.7 % (0.0-7.0); HEMATOCRIT 30.3 % (35.0-45.0); HEMOGLOBIN 9.6 gm/dL (12.0-16.0); LYMPHOCYTE# 1.2 X10e3 (1.0-3.5); LYMPHOCYTE% 8.8 % (17.0-45.0); MEAN CELL VOLUME 102.7 FL (83-96); MEAN CORPUSCULAR HEMOGLOBIN 32.5 PG (28-34); MEAN CORPUSCULAR HGB CONC 31.7 g/dL (30-36); MEAN PLATELET VOLUME 8.3 FL (6.5-11.5); MONOCYTE# 1.8 X10e3 (0-1.0); MONOCYTE% 13.7 % (3.0-12.0); NEUTROPHIL# 9.7 X10e3 (1.5-7.1); PLATELET COUNT 225 X10e3 (140-420); RED BLOOD COUNT 2.95 X10e (3.90-5.30); RED CELL DISTRIBUTION WIDTH 16.7 % (11.0-15.5); WHITE BLOOD COUNT 13.3 X10e3 (4.0-10.5)
[2017-01-26 07:51] LABS: DIFF IND NO
[2017-01-26 08:28] LABS: BUN/CREATININE RATIO 17.69; CALCIUM SERUM 7.9 mg/dL (8.4-10.2); CREATININE SERUM 1.3 mg/dL (0.6-1.4); GLOM FILT RATE Estimated 37.1 mL/min (>60); MAGNESIUM 1.9 mg/dL (1.6-3.0); PHOSPHOROUS 2.9 mg/dL (2.5-4.6); POTASSIUM 3.2 mmol/L (3.5-5.1)
[2017-01-27 05:37] LABS: BASOPHIL# 0.1 X10e3 (0-0.3); EOSINOPHIL# 0.4 X10e3 (0-0.7); EOSINOPHIL% 4.6 % (0.0-7.0); LYMPHOCYTE# 1.2 X10e3 (1.0-3.5); LYMPHOCYTE% 14.1 % (17.0-45.0); MEAN CELL VOLUME 103.9 FL (83-96); MEAN CORPUSCULAR HEMOGLOBIN 33.1 PG (28-34); MEAN CORPUSCULAR HGB CONC 31.9 g/dL (30-36); MEAN PLATELET VOLUME 8.4 FL (6.5-11.5); MONOCYTE# 1.5 X10e3 (0-1.0); MONOCYTE% 18.5 % (3.0-12.0); NEUTROPHIL# 5.1 X10e3 (1.5-7.1); NEUTROPHIL% 61.8 % (40-75); PLATELET COUNT 139 X10e3 (140-420); RED BLOOD COUNT 2.41 X10e (3.90-5.30); RED CELL DISTRIBUTION WIDTH 17.6 % (11.0-15.5); WHITE BLOOD COUNT 8.2 X10e3 (4.0-10.5)
[2017-01-27 05:40] LABS: DIFF IND NO
[2017-01-27 06:36] LABS: BUN/CREATININE RATIO 18.33; CALCIUM SERUM 7.6 mg/dL (8.4-10.2); CREATININE SERUM 1.2 mg/dL (0.6-1.4); GLOM FILT RATE Estimated 40.9 mL/min (>60); PHOSPHOROUS 2.3 mg/dL (2.5-4.6); POTASSIUM 3.7 mmol/L (3.5-5.1)
[2017-01-28 05:56] LABS: BASOPHIL# 0.1 X10e3 (0-0.3); BASOPHIL% 0.6 % (0-2.5); EOSINOPHIL# 0.2 X10e3 (0-0.7); EOSINOPHIL% 1.5 % (0.0-7.0); HEMATOCRIT 31.7 % (35.0-45.0); HEMOGLOBIN 9.8 gm/dL (12.0-16.0); LYMPHOCYTE# 1.5 X10e3 (1.0-3.5); LYMPHOCYTE% 11.7 % (17.0-45.0); MEAN CELL VOLUME 104.4 FL (83-96); MEAN CORPUSCULAR HEMOGLOBIN 32.2 PG (28-34); MEAN CORPUSCULAR HGB CONC 30.9 g/dL (30-36); MEAN PLATELET VOLUME 8.5 FL (6.5-11.5); MONOCYTE# 1.8 X10e3 (0-1.0); MONOCYTE% 14.5 % (3.0-12.0); NEUTROPHIL% 71.7 % (40-75); RED BLOOD COUNT 3.04 X10e (3.90-5.30); RED CELL DISTRIBUTION WIDTH 17.4 % (11.0-15.5)
[2017-01-28 06:29] LABS: DIFF IND NO; PLATELET COUNT 240 X10e3 (140-420); WHITE BLOOD COUNT 12.6 X10e3 (4.0-10.5)
[2017-01-28 07:07] LABS: CALCIUM SERUM 8.4 mg/dL (8.4-10.2); POTASSIUM 3.6 mmol/L (3.5-5.1)
[2017-01-28 14:50] LABS: ARTERIAL BLD GAS O2 SATURATION 96.5 % (90.0-100.0); ARTERIAL BLOOD GAS CARBOXY HB 0.8 %sat (0.0-9.0); ARTERIAL BLOOD GAS HCO3 14.8 mmol/L; ARTERIAL BLOOD GAS MET HB 0.9 %sat (0.0-2.0); ARTERIAL BLOOD GAS PCO2 29.8 mmHg (35.0-45.0); ARTERIAL BLOOD GAS pH 7.304 (7.350-7.450)
[2017-01-28 14:51] LABS: ARTERIAL BLOOD GAS ALLEN TEST N; ARTERIAL BLOOD GAS ART SITE LEFT RADIAL; ARTERIAL BLOOD GAS DELIVERY NASAL CANNULA; ARTERIAL DRAW? YES
[2017-01-29 06:11] LABS: BASOPHIL# 0.1 X10e3 (0-0.3); BASOPHIL% 0.6 % (0-2.5); EOSINOPHIL# 0.3 X10e3 (0-0.7); EOSINOPHIL% 2.7 % (0.0-7.0); HEMOGLOBIN 9.2 gm/dL (12.0-16.0); LYMPHOCYTE# 1.2 X10e3 (1.0-3.5); LYMPHOCYTE% 11.3 % (17.0-45.0); MEAN CELL VOLUME 102.4 FL (83-96); MEAN CORPUSCULAR HEMOGLOBIN 33.5 PG (28-34); MEAN CORPUSCULAR HGB CONC 32.7 g/dL (30-36); MEAN PLATELET VOLUME 7.9 FL (6.5-11.5); MONOCYTE% 19.1 % (3.0-12.0); NEUTROPHIL% 66.3 % (40-75); PLATELET COUNT 209 X10e3 (140-420); RED BLOOD COUNT 2.74 X10e (3.90-5.30); RED CELL DISTRIBUTION WIDTH 17.5 % (11.0-15.5); WHITE BLOOD COUNT 10.5 X10e3 (4.0-10.5)
[2017-01-29 06:12] LABS: DIFF IND NO
[2017-01-29 07:16] LABS: ALBUMIN SERUM 1.7 g/dL (3.5-5.0); BILIRUBIN,TOTAL 0.4 mg/dL (0.2-2.0); BUN/CREATININE RATIO 21.81; CREATININE SERUM 1.1 mg/dL (0.6-1.4); GLOM FILT RATE Estimated 45.4 mL/min (>60); POTASSIUM 3.4 mmol/L (3.5-5.1); PROTEIN TOTAL SERUM 3.9 g/dL (6.0-8.3)
[2017-01-29 14:24] LABS: ARTERIAL BLD GAS O2 SATURATION 81.9 % (90.0-100.0); ARTERIAL BLOOD GAS CARBOXY HB 1.2 %sat (0.0-9.0); ARTERIAL BLOOD GAS HCO3 23.1 mmol/L; ARTERIAL BLOOD GAS MET HB 0.5 %sat (0.0-2.0); ARTERIAL BLOOD GAS PCO2 35.9 mmHg (35.0-45.0); ARTERIAL BLOOD GAS pH 7.417 (7.350-7.450)
[2017-01-29 14:25] LABS: ARTERIAL BLOOD GAS PO2 44.4 mmHg (80.0-100); ARTERIAL DRAW? NO
[2017-01-29 15:54] LABS: URINE SOURCE CATH
[2017-01-29 15:58] LABS: URINE APPEARANCE CLEAR; URINE BILIRUBIN NEG (NEG); URINE BLOOD 2+ (NEG); URINE COLOR YELLOW; URINE GLUCOSE NEG (NEG); URINE KETONE NEG (NEG); URINE LEUKOCYTE ESTERASE TRACE (NEG); URINE NITRATE NEG (NEG); URINE PROTEIN NEG (NEG); URINE SPECIFIC GRAVITY 1.008 (1.003-1.035); URINE UROBILINOGEN 0.2 MG/DL (NEG)
[2017-01-29 16:01] LABS: URINE BACTERIA AUWI NEG (NEGATIVE); URINE SQUAMOUS EPITHELIAL CELL FEW /[HPF]
[2017-01-29 16:15] LABS: CULTURE INDICATED? NO
[2017-01-29 16:27] LABS: U HYALINE CASTS AUWI 0-2 /[LPF]
[2017-01-29 18:16] LABS: ARTERIAL BLD GAS O2 SATURATION 73.9 % (90.0-100.0); ARTERIAL BLOOD GAS CARBOXY HB 1.1 %sat (0.0-9.0); ARTERIAL BLOOD GAS HCO3 25.2 mmol/L; ARTERIAL BLOOD GAS MET HB 0.7 %sat (0.0-2.0); ARTERIAL BLOOD GAS PCO2 44.5 mmHg (35.0-45.0); ARTERIAL BLOOD GAS pH 7.362 (7.350-7.450)
[2017-01-29 18:19] LABS: ARTERIAL BLOOD GAS DELIVERY NASAL CANNULA; ARTERIAL BLOOD GAS PO2 40.3 mmHg (80.0-100); ARTERIAL DRAW? NO
[2017-01-29 18:56] LABS: BUN/CREATININE RATIO 20.9; CALCIUM SERUM 7.7 mg/dL (8.4-10.2); CREATININE SERUM 1.1 mg/dL (0.6-1.4); GLOM FILT RATE Estimated 45.4 mL/min (>60); POTASSIUM 3.2 mmol/L (3.5-5.1)
[2017-01-30 04:05] LABS: ARTERIAL BLD GAS O2 SATURATION 95.1 % (90.0-100.0); ARTERIAL BLOOD GAS CARBOXY HB 1.1 %sat (0.0-9.0); ARTERIAL BLOOD GAS HCO3 23.8 mmol/L; ARTERIAL BLOOD GAS MET HB 0.7 %sat (0.0-2.0); ARTERIAL BLOOD GAS PCO2 39.9 mmHg (35.0-45.0); ARTERIAL BLOOD GAS pH 7.383 (7.350-7.450)
[2017-01-30 04:09] LABS: ARTERIAL BLOOD GAS PO2 74.8 mmHg (80.0-100)
[2017-01-30 04:10] LABS: ARTERIAL BLOOD GAS ALLEN TEST NORMAL; ARTERIAL BLOOD GAS ART SITE LEFT RADIAL; ARTERIAL BLOOD GAS DELIVERY NASAL CANNULA; ARTERIAL DRAW? YES
[2017-01-30 04:11] LABS: BASOPHIL% 0.1 % (0-2.5); EOSINOPHIL# 0.1 X10e3 (0-0.7); EOSINOPHIL% 0.9 % (0.0-7.0); HEMATOCRIT 26.8 % (35.0-45.0); HEMOGLOBIN 8.6 gm/dL (12.0-16.0); LYMPHOCYTE# 0.9 X10e3 (1.0-3.5); LYMPHOCYTE% 9.4 % (17.0-45.0); MEAN CELL VOLUME 102.6 FL (83-96); MEAN CORPUSCULAR HGB CONC 32.2 g/dL (30-36); MEAN PLATELET VOLUME 7.6 FL (6.5-11.5); MONOCYTE# 1.2 X10e3 (0-1.0); NEUTROPHIL# 7.5 X10e3 (1.5-7.1); NEUTROPHIL% 77.6 % (40-75); PLATELET COUNT 148 X10e3 (140-420); RED BLOOD COUNT 2.62 X10e (3.90-5.30); WHITE BLOOD COUNT 9.6 X10e3 (4.0-10.5)
[2017-01-30 04:18] LABS: DIFF IND NO
[2017-01-30 04:32] LABS: ALBUMIN SERUM 2.6 g/dL (3.5-5.0); BILIRUBIN,TOTAL 0.5 mg/dL (0.2-2.0); CALCIUM SERUM 8.2 mg/dL (8.4-10.2); POTASSIUM 3.7 mmol/L (3.5-5.1); PROTEIN TOTAL SERUM 4.8 g/dL (6.0-8.3)
[2017-01-31 04:19] LABS: BASOPHIL% 0.1 % (0-2.5); DIFF IND YES; EOSINOPHIL# 0.1 X10e3 (0-0.7); HEMATOCRIT 21.8 % (35.0-45.0); HEMOGLOBIN 7.2 gm/dL (12.0-16.0); LYMPHOCYTE# 0.6 X10e3 (1.0-3.5); LYMPHOCYTE% 11.1 % (17.0-45.0); MEAN CELL VOLUME 101.5 FL (83-96); MEAN CORPUSCULAR HEMOGLOBIN 33.7 PG (28-34); MEAN CORPUSCULAR HGB CONC 33.2 g/dL (30-36); MEAN PLATELET VOLUME 7.2 FL (6.5-11.5); MONOCYTE# 0.7 X10e3 (0-1.0); NEUTROPHIL# 4.3 X10e3 (1.5-7.1); NEUTROPHIL% 75.8 % (40-75); PLATELET COUNT 107 X10e3 (140-420); RED BLOOD COUNT 2.15 X10e (3.90-5.30); RED CELL DISTRIBUTION WIDTH 17.3 % (11.0-15.5); WHITE BLOOD COUNT 5.6 X10e3 (4.0-10.5)
[2017-01-31 04:23] LABS: ALBUMIN SERUM 3.5 g/dL (3.5-5.0); BUN/CREATININE RATIO 28.57; CALCIUM SERUM 8.6 mg/dL (8.4-10.2); CREATININE SERUM 0.7 mg/dL (0.6-1.4); GLOM FILT RATE Estimated 78.5 mL/min (>60); POTASSIUM 3.6 mmol/L (3.5-5.1); PROTEIN TOTAL SERUM 4.9 g/dL (6.0-8.3)
[2017-01-31 04:39] LABS: PLATELET ESTIMATE DECREASED (NORMAL)
[2017-01-31 04:40] LABS: HYPOCHROMIA MOD; POLYCHROMASIA SL
[2017-01-31 08:16] LABS: CK TOTAL 40 IU/L (26-140)
[2017-02-01 06:59] LABS: CALCIUM SERUM 9.2 mg/dL (8.4-10.2); POTASSIUM 4.3 mmol/L (3.5-5.1)
[2017-02-01 07:14] LABS: BASOPHIL% 0.3 % (0-2.5); EOSINOPHIL# 0.1 X10e3 (0-0.7); EOSINOPHIL% 0.9 % (0.0-7.0); HEMATOCRIT 23.4 % (35.0-45.0); HEMOGLOBIN 7.7 gm/dL (12.0-16.0); LYMPHOCYTE# 0.7 X10e3 (1.0-3.5); LYMPHOCYTE% 7.3 % (17.0-45.0); MEAN CORPUSCULAR HEMOGLOBIN 34.2 PG (28-34); MEAN CORPUSCULAR HGB CONC 32.7 g/dL (30-36); MEAN PLATELET VOLUME 8.2 FL (6.5-11.5); MONOCYTE# 1.3 X10e3 (0-1.0); MONOCYTE% 14.2 % (3.0-12.0); NEUTROPHIL# 7.2 X10e3 (1.5-7.1); NEUTROPHIL% 77.3 % (40-75); PLATELET COUNT 133 X10e3 (140-420); RED BLOOD COUNT 2.24 X10e (3.90-5.30); RED CELL DISTRIBUTION WIDTH 18.4 % (11.0-15.5)
[2017-02-01 07:51] LABS: WHITE BLOOD COUNT 9.3 X10e3 (4.0-10.5)
[2017-02-01 07:52] LABS: DIFF IND NO; MEAN CELL VOLUME 104.5 FL (83-96)
[2017-02-01 12:43] LABS: AMYLASE, BODY FLUID 1 IU/L; PROTEIN, BODY FLUID 0.8 gm/dL
[2017-02-02 04:10] LABS: ARTERIAL BLD GAS O2 SATURATION 91.7 % (90.0-100.0); ARTERIAL BLOOD GAS CARBOXY HB 0.9 %sat (0.0-9.0); ARTERIAL BLOOD GAS HCO3 22.3 mmol/L; ARTERIAL BLOOD GAS PCO2 49.5 mmHg (35.0-45.0); ARTERIAL BLOOD GAS pH 7.263 (7.350-7.450)
[2017-02-02 04:15] LABS: ARTERIAL BLOOD GAS ALLEN TEST NORMAL; ARTERIAL BLOOD GAS ART SITE LEFT RADIAL; ARTERIAL BLOOD GAS DELIVERY HIGH FLOW NC; ARTERIAL BLOOD GAS PO2 69.1 mmHg (80.0-100); ARTERIAL DRAW? YES
[2017-02-02 05:02] LABS: BASOPHIL% 0.3 % (0-2.5); EOSINOPHIL% 0.3 % (0.0-7.0); HEMATOCRIT 20.3 % (35.0-45.0); LYMPHOCYTE# 0.6 X10e3 (1.0-3.5); LYMPHOCYTE% 7.3 % (17.0-45.0); MEAN CELL VOLUME 106.1 FL (83-96); MEAN CORPUSCULAR HEMOGLOBIN 33.4 PG (28-34); MEAN CORPUSCULAR HGB CONC 31.5 g/dL (30-36); MEAN PLATELET VOLUME 8.6 FL (6.5-11.5); MONOCYTE# 1.2 X10e3 (0-1.0); MONOCYTE% 15.1 % (3.0-12.0); NEUTROPHIL# 6.1 X10e3 (1.5-7.1); PLATELET COUNT 104 X10e3 (140-420); RED BLOOD COUNT 1.91 X10e (3.90-5.30); RED CELL DISTRIBUTION WIDTH 19.1 % (11.0-15.5); WHITE BLOOD COUNT 7.9 X10e3 (4.0-10.5)
[2017-02-02 05:04] LABS: HEMOGLOBIN 6.4 gm/dL (12.0-16.0)
[2017-02-02 05:05] LABS: DIFF IND NO
[2017-02-02 05:22] LABS: ALBUMIN SERUM 4.8 g/dL (3.5-5.0); BILIRUBIN,TOTAL 1.1 mg/dL (0.2-2.0); BUN/CREATININE RATIO 21.66; CALCIUM SERUM 9.4 mg/dL (8.4-10.2); CREATININE SERUM 1.2 mg/dL (0.6-1.4); GLOM FILT RATE Estimated 40.9 mL/min (>60); MAGNESIUM 1.9 mg/dL (1.6-3.0); POTASSIUM 4.4 mmol/L (3.5-5.1); PROTEIN TOTAL SERUM 5.6 g/dL (6.0-8.3)
[2017-02-02 11:50] LABS: BF TOTAL NUCLEATED CELL COUNT 112 CMM (0-100); BODY FLUID APPEARANCE CLEAR; BODY FLUID SOURCE PLEURAL
[2017-02-02 11:51] LABS: BODY FLUID RBC <10000 CMM
[2017-02-02 19:26] LABS: BUN/CREATININE RATIO 22.85; CALCIUM SERUM 9.3 mg/dL (8.4-10.2); CREATININE SERUM 1.4 mg/dL (0.6-1.4); GLOM FILT RATE Estimated 33.9 mL/min (>60); MAGNESIUM 1.9 mg/dL (1.6-3.0); POTASSIUM 4.5 mmol/L (3.5-5.1)
[2017-02-03 05:54] LABS: BUN/CREATININE RATIO 23.12; CALCIUM SERUM 9.4 mg/dL (8.4-10.2); CREATININE SERUM 1.6 mg/dL (0.6-1.4); GLOM FILT RATE Estimated 28.9 mL/min (>60); POTASSIUM 4.8 mmol/L (3.5-5.1)
[2017-02-03 05:59] LABS: BASOPHIL% 0.2 % (0-2.5); EOSINOPHIL% 0.1 % (0.0-7.0); HEMATOCRIT 32.6 % (35.0-45.0); HEMOGLOBIN 10.4 gm/dL (12.0-16.0); LYMPHOCYTE# 0.6 X10e3 (1.0-3.5); LYMPHOCYTE% 4.3 % (17.0-45.0); MEAN CORPUSCULAR HEMOGLOBIN 31.8 PG (28-34); MEAN CORPUSCULAR HGB CONC 31.8 g/dL (30-36); MEAN PLATELET VOLUME 8.6 FL (6.5-11.5); MONOCYTE# 1.3 X10e3 (0-1.0); MONOCYTE% 9.7 % (3.0-12.0); NEUTROPHIL# 11.2 X10e3 (1.5-7.1); NEUTROPHIL% 85.7 % (40-75); PLATELET COUNT 94 X10e3 (140-420); RED BLOOD COUNT 3.26 X10e (3.90-5.30); RED CELL DISTRIBUTION WIDTH 19.2 % (11.0-15.5); WHITE BLOOD COUNT 13.1 X10e3 (4.0-10.5)
[2017-02-03 06:02] LABS: DIFF IND NO
[2017-02-04 04:17] LABS: BASOPHIL% 0.1 % (0-2.5); HEMATOCRIT 33.7 % (35.0-45.0); LYMPHOCYTE# 0.3 X10e3 (1.0-3.5); LYMPHOCYTE% 2.7 % (17.0-45.0); MEAN CELL VOLUME 99.3 FL (83-96); MEAN CORPUSCULAR HEMOGLOBIN 32.4 PG (28-34); MEAN CORPUSCULAR HGB CONC 32.7 g/dL (30-36); MEAN PLATELET VOLUME 8.3 FL (6.5-11.5); MONOCYTE# 0.6 X10e3 (0-1.0); MONOCYTE% 4.6 % (3.0-12.0); NEUTROPHIL# 11.3 X10e3 (1.5-7.1); NEUTROPHIL% 92.6 % (40-75); PLATELET COUNT 110 X10e3 (140-420); RED BLOOD COUNT 3.39 X10e (3.90-5.30); RED CELL DISTRIBUTION WIDTH 19.7 % (11.0-15.5); WHITE BLOOD COUNT 12.2 X10e3 (4.0-10.5)
[2017-02-04 04:36] LABS: DIFF IND NO
[2017-02-04 04:45] LABS: CALCIUM SERUM 9.6 mg/dL (8.4-10.2); MAGNESIUM 2.1 mg/dL (1.6-3.0); POTASSIUM 5.1 mmol/L (3.5-5.1)
[2017-02-04 09:11] LABS: ARTERIAL BLD GAS O2 SATURATION 85.2 % (90.0-100.0); ARTERIAL BLOOD GAS CARBOXY HB 1.1 %sat (0.0-9.0); ARTERIAL BLOOD GAS HCO3 21.8 mmol/L; ARTERIAL BLOOD GAS MET HB 0.8 %sat (0.0-2.0); ARTERIAL BLOOD GAS PCO2 46.4 mmHg (35.0-45.0)
[2017-02-04 09:12] LABS: ARTERIAL BLOOD GAS ALLEN TEST NORMAL; ARTERIAL BLOOD GAS ART SITE RIGHT RADIAL; ARTERIAL BLOOD GAS DELIVERY HFC; ARTERIAL BLOOD GAS PO2 53.3 mmHg (80.0-100); ARTERIAL DRAW? YES
[2017-02-04 12:17] LABS: ARTERIAL BLD GAS O2 SATURATION 90.5 % (90.0-100.0); ARTERIAL BLOOD GAS CARBOXY HB 0.9 %sat (0.0-9.0); ARTERIAL BLOOD GAS HCO3 21.6 mmol/L; ARTERIAL BLOOD GAS MET HB 0.8 %sat (0.0-2.0); ARTERIAL BLOOD GAS PCO2 48.8 mmHg (35.0-45.0); ARTERIAL BLOOD GAS PO2 66.7 mmHg (80.0-100); ARTERIAL BLOOD GAS pH 7.254 (7.350-7.450)
[2017-02-04 12:18] LABS: ARTERIAL BLOOD GAS ALLEN TEST NORMAL; ARTERIAL BLOOD GAS ART SITE RIGHT RADIAL; ARTERIAL BLOOD GAS DELIVERY BIPAP; ARTERIAL DRAW? YES
[2017-02-04 17:41] LABS: BUN/CREATININE RATIO 32.38; CALCIUM SERUM 9.4 mg/dL (8.4-10.2); CREATININE SERUM 2.1 mg/dL (0.6-1.4); GLOM FILT RATE Estimated 20.8 mL/min (>60); POTASSIUM 4.8 mmol/L (3.5-5.1)
[2017-02-05 04:34] LABS: ARTERIAL BLD GAS O2 SATURATION 98.7 % (90.0-100.0); ARTERIAL BLOOD GAS CARBOXY HB 0.6 %sat (0.0-9.0); ARTERIAL BLOOD GAS MET HB 0.8 %sat (0.0-2.0); ARTERIAL BLOOD GAS PCO2 47.6 mmHg (35.0-45.0); ARTERIAL BLOOD GAS pH 7.273 (7.350-7.450)
[2017-02-05 04:59] LABS: ARTERIAL BLOOD GAS ALLEN TEST NORMAL; ARTERIAL BLOOD GAS ART SITE RIGHT RADIAL; ARTERIAL BLOOD GAS DELIVERY BIPAP 14/4; ARTERIAL DRAW? YES
[2017-02-05 05:14] LABS: BASOPHIL% 0.1 % (0-2.5); HEMATOCRIT 35.8 % (35.0-45.0); HEMOGLOBIN 11.6 gm/dL (12.0-16.0); LYMPHOCYTE# 0.4 X10e3 (1.0-3.5); LYMPHOCYTE% 2.1 % (17.0-45.0); MEAN CELL VOLUME 99.4 FL (83-96); MEAN CORPUSCULAR HEMOGLOBIN 32.1 PG (28-34); MEAN CORPUSCULAR HGB CONC 32.3 g/dL (30-36); MEAN PLATELET VOLUME 8.3 FL (6.5-11.5); MONOCYTE# 1.1 X10e3 (0-1.0); MONOCYTE% 5.9 % (3.0-12.0); NEUTROPHIL# 17.8 X10e3 (1.5-7.1); NEUTROPHIL% 91.9 % (40-75); PLATELET COUNT 163 X10e3 (140-420); RED CELL DISTRIBUTION WIDTH 19.6 % (11.0-15.5)
[2017-02-05 05:15] LABS: DIFF IND YES; WHITE BLOOD COUNT 19.4 X10e3 (4.0-10.5)
[2017-02-05 06:27] LABS: ALBUMIN SERUM 3.9 g/dL (3.5-5.0); BILIRUBIN,TOTAL 1.3 mg/dL (0.2-2.0); BUN/CREATININE RATIO 35.45; CALCIUM SERUM 9.8 mg/dL (8.4-10.2); CREATININE SERUM 2.2 mg/dL (0.6-1.4); GLOM FILT RATE Estimated 19.7 mL/min (>60); MAGNESIUM 2.2 mg/dL (1.6-3.0); PHOSPHOROUS 4.1 mg/dL (2.5-4.6); POTASSIUM 4.7 mmol/L (3.5-5.1); PROTEIN TOTAL SERUM 5.3 g/dL (6.0-8.3)
[2017-02-05 06:39] LABS: TARGET CELLS SL
[2017-02-05 06:40] LABS: PLATELET ESTIMATE NORMAL (NORMAL)
[2017-02-06 04:10] LABS: ARTERIAL BLD GAS O2 SATURATION 97.4 % (90.0-100.0); ARTERIAL BLOOD GAS CARBOXY HB 0.8 %sat (0.0-9.0); ARTERIAL BLOOD GAS HCO3 22.1 mmol/L; ARTERIAL BLOOD GAS MET HB 0.9 %sat (0.0-2.0); ARTERIAL BLOOD GAS PCO2 48.5 mmHg (35.0-45.0); ARTERIAL BLOOD GAS pH 7.268 (7.350-7.450)
[2017-02-06 04:11] LABS: ARTERIAL BLOOD GAS ALLEN TEST NORMAL; ARTERIAL BLOOD GAS ART SITE RIGHT RADIAL; ARTERIAL BLOOD GAS DELIVERY OPTIFLOW; ARTERIAL DRAW? YES
[2017-02-06 05:16] LABS: BASOPHIL# 0.1 X10e3 (0-0.3); BASOPHIL% 0.7 % (0-2.5); HEMATOCRIT 37.3 % (35.0-45.0); HEMOGLOBIN 11.9 gm/dL (12.0-16.0); LYMPHOCYTE# 0.3 X10e3 (1.0-3.5); LYMPHOCYTE% 1.9 % (17.0-45.0); MEAN CELL VOLUME 100.2 FL (83-96); MEAN CORPUSCULAR HEMOGLOBIN 32.1 PG (28-34); MEAN PLATELET VOLUME 8.3 FL (6.5-11.5); MONOCYTE# 1.3 X10e3 (0-1.0); MONOCYTE% 7.3 % (3.0-12.0); NEUTROPHIL# 15.4 X10e3 (1.5-7.1); NEUTROPHIL% 90.1 % (40-75); PLATELET COUNT 164 X10e3 (140-420); RED BLOOD COUNT 3.72 X10e (3.90-5.30); WHITE BLOOD COUNT 17.1 X10e3 (4.0-10.5)
[2017-02-06 05:17] LABS: DIFF IND NO
[2017-02-06 06:16] LABS: ALBUMIN SERUM 3.6 g/dL (3.5-5.0); BILIRUBIN,TOTAL 1.4 mg/dL (0.2-2.0); BUN/CREATININE RATIO 40.41; CALCIUM SERUM 9.8 mg/dL (8.4-10.2); CREATININE SERUM 2.4 mg/dL (0.6-1.4); GLOM FILT RATE Estimated 17.7 mL/min (>60); MAGNESIUM 2.4 mg/dL (1.6-3.0); PHOSPHOROUS 4.4 mg/dL (2.5-4.6); POTASSIUM 4.4 mmol/L (3.5-5.1); PROTEIN TOTAL SERUM 5.1 g/dL (6.0-8.3)
[2017-02-07 04:33] LABS: ARTERIAL BLD GAS O2 SATURATION 97.9 % (90.0-100.0); ARTERIAL BLOOD GAS CARBOXY HB 0.6 %sat (0.0-9.0); ARTERIAL BLOOD GAS HCO3 22.8 mmol/L; ARTERIAL BLOOD GAS MET HB 0.7 %sat (0.0-2.0); ARTERIAL BLOOD GAS pH 7.205 (7.350-7.450)
[2017-02-07 04:34] LABS: BASOPHIL# 0.1 X10e3 (0-0.3); BASOPHIL% 0.6 % (0-2.5); DIFF IND NO; HEMATOCRIT 40.8 % (35.0-45.0); LYMPHOCYTE# 0.3 X10e3 (1.0-3.5); LYMPHOCYTE% 2.3 % (17.0-45.0); MEAN CELL VOLUME 100.9 FL (83-96); MEAN CORPUSCULAR HEMOGLOBIN 32.1 PG (28-34); MEAN CORPUSCULAR HGB CONC 31.8 g/dL (30-36); MEAN PLATELET VOLUME 8.8 FL (6.5-11.5); MONOCYTE# 1.1 X10e3 (0-1.0); MONOCYTE% 7.5 % (3.0-12.0); NEUTROPHIL# 13.3 X10e3 (1.5-7.1); NEUTROPHIL% 89.6 % (40-75); PLATELET COUNT 164 X10e3 (140-420); RED BLOOD COUNT 4.05 X10e (3.90-5.30); RED CELL DISTRIBUTION WIDTH 19.8 % (11.0-15.5); WHITE BLOOD COUNT 14.8 X10e3 (4.0-10.5)
[2017-02-07 04:40] LABS: ARTERIAL BLOOD GAS ALLEN TEST NORMAL; ARTERIAL BLOOD GAS ART SITE LEFT RADIAL; ARTERIAL BLOOD GAS PCO2 57.8 mmHg (35.0-45.0); ARTERIAL DRAW? YES
[2017-02-07 04:41] LABS: ARTERIAL BLOOD GAS DELIVERY OPTIFLOW
[2017-02-07 05:48] LABS: ALBUMIN SERUM 3.5 g/dL (3.5-5.0); BILIRUBIN,TOTAL 1.2 mg/dL (0.2-2.0); CALCIUM SERUM 9.7 mg/dL (8.4-10.2); CREATININE SERUM 2.8 mg/dL (0.6-1.4); GLOM FILT RATE Estimated 14.7 mL/min (>60); POTASSIUM 4.8 mmol/L (3.5-5.1); PROTEIN TOTAL SERUM 5.1 g/dL (6.0-8.3)
[2017-02-07 05:49] LABS: BUN/CREATININE RATIO 40.71
== END 2017-02-09 08:55 | disposition expired | DRG 871 ==
LOC: SED 11:25 → CEDOF 14:30 → CICCU3 14:30 → SED 14:43 → CEDOF 14:43 → CICCU3 16:25 → C2A 02-08 13:37
PROVIDERS: Emergency Medicine; Hospitalist; Internal Medicine; Internal Medicine Cardiovascular Disease; Internal Medicine Nephrology; Internal Medicine Pulmonary Disease; Nurse Practitioner; Orthopaedic Surgery; Physician Assistant Medical
PROC: 05HM33Z Insertion of Infusion Device into Right Internal Jugular Vein, Percutaneous Approach (ICD-10-PCS; 2017-01-24)
PROC: B543ZZA Ultrasonography of Right Jugular Veins, Guidance (ICD-10-PCS; 2017-01-24)
PROC: B24BYZZ Ultrasonography of Heart with Aorta using Other Contrast (ICD-10-PCS; 2017-01-25)
PROC: 0QSGXZZ Reposition Right Tibia, External Approach (ICD-10-PCS; principal; 2017-01-30 13:00)
PROC: 0B9B8ZX Drainage of Left Lower Lobe Bronchus, Via Natural or Artificial Opening Endoscopic, Diagnostic (ICD-10-PCS; 2017-02-01)
PROC: 0W9930Z Drainage of Right Pleural Cavity with Drainage Device, Percutaneous Approach (ICD-10-PCS; 2017-02-02)
PROC: 0B978ZX Drainage of Left Main Bronchus, Via Natural or Artificial Opening Endoscopic, Diagnostic (ICD-10-PCS; 2017-02-02)
PROC: 30233N1 Transfusion of Nonautologous Red Blood Cells into Peripheral Vein, Percutaneous Approach (ICD-10-PCS; 2017-02-02)
PROC: 0BB78ZX Excision of Left Main Bronchus, Via Natural or Artificial Opening Endoscopic, Diagnostic (ICD-10-PCS; 2017-02-07)
PROC: 0BBB8ZX Excision of Left Lower Lobe Bronchus, Via Natural or Artificial Opening Endoscopic, Diagnostic (ICD-10-PCS; 2017-02-07)
DX: A41.9 Sepsis, unspecified organism (principal); R65.21 Severe sepsis with septic shock; J96.01 Acute respiratory failure with hypoxia; J90 Pleural effusion, not elsewhere classified; I50.33 Acute on chronic diastolic (congestive) heart failure; N17.9 Acute kidney failure, unspecified; A04.7 Enterocolitis due to Clostridium difficile; G92 Toxic encephalopathy; E87.4 Mixed disorder of acid-base balance; J15.1 Pneumonia due to Pseudomonas; E46 Unspecified protein-calorie malnutrition; F33.2 Major depressive disorder, recurrent severe without psychotic features; E87.1 Hypo-osmolality and hyponatremia; J98.19 Other pulmonary collapse; T17.890A Other foreign object in other parts of respiratory tract causing asphyxiation, initial encounter; I13.0 Hypertensive heart and chronic kidney disease with heart failure and stage 1 through stage 4 chronic kidney disease, or unspecified chronic kidney disease; J44.9 Chronic obstructive pulmonary disease, unspecified; Z85.3 Personal history of malignant neoplasm of breast; E03.9 Hypothyroidism, unspecified; M81.0 Age-related osteoporosis without current pathological fracture; Z90.49 Acquired absence of other specified parts of digestive tract; Z88.2 Allergy status to sulfonamides; S82.201D Unspecified fracture of shaft of right tibia, subsequent encounter for closed fracture with routine healing; S82.401D Unspecified fracture of shaft of right fibula, subsequent encounter for closed fracture with routine healing; L89.152 Pressure ulcer of sacral region, stage 2; I07.1 Rheumatic tricuspid insufficiency; Z87.891 Personal history of nicotine dependence; Z88.1 Allergy status to other antibiotic agents; G30.9 Alzheimer's disease, unspecified; F02.80 Dementia in other diseases classified elsewhere, unspecified severity, without behavioral disturbance, psychotic disturbance, mood disturbance, and anxiety; F41.9 Anxiety disorder, unspecified; D64.89 Other specified anemias; E87.6 Hypokalemia; N18.3 Chronic kidney disease, stage 3 (moderate); E87.5 Hyperkalemia; I49.9 Cardiac arrhythmia, unspecified; Z51.5 Encounter for palliative care; Z68.23 Body mass index [BMI] 23.0-23.9, adult
CPT/HCPCS: 36415; 36600; 51702; 70450; 71010; 71250; 73560; 73590; 74000; 74176; 76000; 80048; 80053; 80202; 81003; 82042; 82150; 82274; 82308; 82533; 82550; 82553; 82570; 82803; 83605; 83615; 83735; 83880; 84100; 84157; 84300; 84484; 85025; 85027; 85610; 86850; 86900; 86901; 86923; 87040; 87045; 87070; 87077; 87102; 87116; 87186; 87205; 87206; 87427; 87493; 87899; 88108; 88305; 89051; 89190; 92610; 93005; 93306; 94640; 94660; 94668; 94760; 94761; 96361; 96365; 96375; 97110; 97116; 97163; 97530; 99285; G8978-GP; G8979-GP; G8996-GN; G8997-GN; G8998-GN; J0461; J1450; J1650; J1940; J2250; J2270; J2405; J2543; J2550; J2765; J2920; J3010; J3370; J3475; J3490; J7060; P9016; P9045; P9047